=== PATIENT | female | born 1995 | race Caucasian/White ===

== ENCOUNTER 2017-06-29 17:47 | Emergency (ER) | payer OTHER ==
[~2017-06-29] VITALS: Ht 160 cm; Wt 93.4 kg
[~2017-06-29 17:47] MED LIST: ONDA4TAB10 PO; PHEN100T82 PO; SULF1TAB24 PO
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
[2017-06-29 19:01] VITALS: BP 130/68
[2017-06-30] MEDS ORDERED: ONDA4TAB10 SL (13:34)
== END 2017-06-29 19:00 | disposition home or self-care (01) ==
LOC: ER 17:47
DX: S06.0X0A Concussion without loss of consciousness, initial encounter (principal); S20.212A Contusion of left front wall of thorax, initial encounter; S20.211A Contusion of right front wall of thorax, initial encounter; Z87.820 Personal history of traumatic brain injury; Y04.0XXA Assault by unarmed brawl or fight, initial encounter; Y93.89 Activity, other specified; Y99.8 Other external cause status; Y92.89 Other specified places as the place of occurrence of the external cause
CPT/HCPCS: 99281; 99283

== ENCOUNTER 2017-06-30 12:55 | Emergency (ER) | payer OTHER ==
[~2017-06-30] VITALS: Ht 160 cm; Wt 93.4 kg
[2017-06-30] MEDS ORDERED: ONDA4TAB10 SL (13:34)
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
[2017-06-30 13:40] VITALS: BP 129/89
== END 2017-06-30 13:41 | disposition home or self-care (01) ==
LOC: ER 12:55
DX: S09.8XXA Other specified injuries of head, initial encounter (principal); W22.8XXA Striking against or struck by other objects, initial encounter; Y93.89 Activity, other specified; Y99.8 Other external cause status; Y92.89 Other specified places as the place of occurrence of the external cause
CPT/HCPCS: 99283

== ENCOUNTER 2017-09-17 17:33 | Emergency (ER) | payer OTHER ==
[~2017-09-17] VITALS: Ht 160 cm; Wt 88.5 kg
[~2017-09-17 17:33] MED LIST changes: +ONDA4TAB10 SL
[2017-09-17] MEDS ORDERED: CIPR250T30 PO (18:01)
[2017-09-17] MEDS ORDERED: PHEN100T82 PO (18:01)
[2017-09-17] MEDS ORDERED: NAPR-683 PO (18:01)
--- NOTE | 2017-09-17 18:01 | PHYS DOC ---
Past History Past Medical History: No Pertinent History Past Surgical History: No Surgical History Smoking: Non-smoker Alcohol Use: Occasionally Drug Use: None Adult General Chief Complaint Chief Complaint: PAIN ON URINATION [facility] 22-year-old female patient complaining of lower abdominal pain that getting worse with urination for the last 1 week with nausea and couple episodes of vomiting without fever and chills. Patient states she had the same problem with previous episodes of UTI. Patient denies urinary discharge, , Review of Systems Review of Systems Constitutional: Denies fever or chills [] Eyes: Denies change in visual acuity, redness, or eye pain [] HENT: Denies nasal congestion or sore throat [] Respiratory: Denies cough or shortness of breath [] Cardiovascular: No additional information not addressed in HPI [] GI: Denies abdominal pain, nausea, vomiting, bloody stools or diarrhea [] : Reports dysuria[] Musculoskeletal: Denies back pain or joint pain [] Integument: Denies rash or skin lesions [] Neurologic: Denies headache, focal weakness or sensory changes [] Endocrine: Denies polyuria or polydipsia [] All other systems were reviewed and found to be within normal limits, except as documented in this note. Allergies Allergies Allergies Coded Allergies Type Severity Reaction Last Updated Verified No Known Drug Allergies 09/14/16 No Physical Exam Physical Exam Constitutional: Well developed, well nourished, no acute distress, non-toxic appearance. [] HENT: Normocephalic, atraumatic, bilateral external ears normal, oropharynx moist, no oral exudates, nose normal. [] Eyes: PERRLA, EOMI, conjunctiva normal, no discharge. [] Neck: Normal range of motion, no tenderness, supple, no stridor. [] Cardiovascular:Heart rate regular rhythm, no murmur [] Lungs & Thorax: Bilateral breath sounds clear to auscultation [] Abdomen: Bowel sounds normal, soft, no tenderness, no masses, no pulsatile masses. [] Skin: Warm, dry, no erythema, no rash. [] Back: No tenderness, no CVA tenderness. [] Extremities: No tenderness, no cyanosis, no clubbing, ROM intact, no edema. [] Neurologic: Alert and oriented X 3, normal motor function, normal sensory function, no focal deficits noted. [] Psychologic: Affect normal, judgement normal, mood normal. [] Current Patient Data Lab Results Laboratory Tests Test 09/17/17 17:50 POC Urine HCG, Qualitative hcg negative (Negative) EKG EKG [] Radiology/Procedures Radiology/Procedures [] Course & Med Decision Making Course & Med Decision Making Pertinent Labs reviewed. (See chart for details) discharge: I've spoken with the patient and/or caregivers. I've explained the patient's condition, diagnosis and treatment plan based on information available to me at this time. I've answered the patient's and/or caregivers questions and addressed any concerns. The patient and/or caregivers have a good understanding the patient's diagnosis, condition and treatment plan as can be expected at this point. Vital signs have been stabilized. The patient's condition is stable for discharge from the emergency department. The patient will pursue further outpatient evaluation with her primary care provider or other designated consulting physician as outlined in the discharge instructions. Patient and/or caregivers are agreeable to this plan of care and follow-up instructions have been explained in detail. The patient and/or caregivers have received these instructions in written format and expressed understanding of these discharge instructions. The patient and her caregivers are aware that if any significant change in condition or worsening of symptoms should prompt him to immediately return to this of the closest emergency department. If an emergent department is not readily available I would encourage him to call 911. [] Dragon Disclaimer Dragon Disclaimer This electronic medical record was generated, in whole or in part, using a voice recognition dictation system. Departure Departure: Impression: Primary Impression: UTI (urinary tract infection) Disposition: HOME, SELF-CARE (at 1800) Condition: STABLE Referrals: ANALIA CARRILLO MD (PCP) Patient Instructions: Urinary Tract Infection Additional Instructions: Drink plenty of liquids Follow-up with your primary care physician in 3-5 days Return to ER if not getting better Scripts Phenazopyridine Hcl (PYRIDIUM) 100 Mg Tablet 100 MG PO BID, #14 TAB Prov: TANVIR SHARMA MD 09/17/17 Naproxen (NAPROSYN) 500 Mg Tablet 1 TAB PO BID, #14 TAB 2 Refills Prov: TANVIR SHARMA MD 09/17/17 Ciprofloxacin Hcl (CIPRO) 250 Mg Tablet 1 TAB PO BID, #14 TAB Prov: TANVIR SHARMA MD 09/17/17 TANVIR SHARMA MD Sep 17, 2017 18:01
[2017-09-17 18:05] VITALS: BP 119/65
[2017-09-17 18:56] LABS: BILIRUBIN,URINE NEG (NEG); CLARITY,URINE CLEAR; COLOR,URINE YELLOW; GLUCOSE,URINE NEG (NEG); NITRITE,URINE NEG (NEG); UROBILINOGEN,URINE 0.2 mg/dL (0.2 mg/dL)
[2017-09-17 18:57] LABS: BACTERIA,URINE MOD /HPF (0-FEW); SQUAMOUS EPITHELIAL CELL,UR OCC /LPF
== END 2017-09-17 18:09 | disposition home or self-care (01) ==
LOC: ER 17:33
DX: N39.0 Urinary tract infection, site not specified (principal)
CPT/HCPCS: 81001; 81025; 87086; 99284

== ENCOUNTER 2018-05-29 23:07 | Emergency (ER) | payer SELFPAY ==
[~2018-05-29] VITALS: Ht 157.5 cm; Wt 77.0 kg
[~2018-05-29 23:07] MED LIST changes: +CIPR250T30 PO; +NAPR-683 PO
[2018-05-30 00:24] LABS: BILIRUBIN,URINE NEG (NEG); CLARITY,URINE CLEAR; COLOR,URINE YELLOW; GLUCOSE,URINE NEG (NEG)
[2018-05-30 00:25] LABS: BACTERIA,URINE 0 /HPF (0-FEW); NITRITE,URINE NEG (NEG); RBC,URINE 0 /HPF (0-2); SQUAMOUS EPITHELIAL CELL,UR FEW /LPF; UROBILINOGEN,URINE 0.2 mg/dL (0.2 mg/dL); WBC,URINE RARE /HPF (0-4)
[2018-05-30] MEDS: IV NORMAL SALINE 1,000ML 1,000 ML IV ONE (00:38)
[2018-05-30] MEDS: ONDANSETRON PF 4 MG/2 ML VIAL. IV ONE (00:38)
[2018-05-30 01:05] LABS: BASO % 0 % (0-3); EOS # 0.1 x10^3/uL (0.0-0.7); EOS % 1 % (0-3); HEMATOCRIT 41.2 % (36.0-47.0); HEMOGLOBIN 14.1 g/dL (12.0-15.5); LYMPH % 27 % (24-48); MEAN CORPUSCULAR HEMOGLOBIN 31 pg (25-35); MEAN CORPUSCULAR HGB CONC 34 g/dL (31-37); MEAN CORPUSCULAR VOLUME 90 fL (79-100); MONO # 0.5 x10^3/uL (0.0-1.1); MONO % 5 % (0-9); NEUT # 7.5 x10^3uL (1.8-7.7); NEUT % 67 % (31-73); PLATELET COUNT 260 x10^3/uL (140-400); RED BLOOD COUNT 4.59 x10^6/uL (3.50-5.40); RED CELL DISTRIBUTION WIDTH 13.1 % (11.5-14.5); WHITE BLOOD COUNT 11.2 x10^3/uL (4.0-11.0)
--- NOTE | 2018-05-30 01:06 | PHYS DOC ---
Adult General Chief Complaint Chief Complaint Nausea and vomiting [facility] HPI Laboratory pleasant 23 years old female presented to the emergency department with nausea and vomiting started on Wednesday 2 days ago no abdominal pain no fever no chills no urgency no frequency no hematuria states she minimally vomits after she eats she noticed she vomits and she feels burning sensation in her epigastric area after spicy foods Review of Systems Review of Systems Constitutional: Denies fever or chills [] Eyes: Denies change in visual acuity, redness, or eye pain [] HENT: Denies nasal congestion or sore throat [] Respiratory: Denies cough or shortness of breath [] Cardiovascular: No additional information not addressed in HPI [] GI: Denies abdominal pain, nausea, vomiting, bloody stools or diarrhea [] : Denies dysuria or hematuria [] Musculoskeletal: Denies back pain or joint pain [] Integument: Denies rash or skin lesions [] Neurologic: Denies headache, focal weakness or sensory changes [] Endocrine: Denies polyuria or polydipsia [] All other systems were reviewed and found to be within normal limits, except as documented in this note. Current Medications Current Medications Current Medications Medications (Trade) Dose Ordered Sig/Devang Start Time Stop Time Status Last Admin Dose Admin Ondansetron HCl (Zofran) 4 mg 1X ONCE 05/30/18 00:30 05/30/18 00:31 DC 05/30/18 00:38 4 MG Sodium Chloride 1,000 ml @ 1,000 mls/hr 1X ONCE 05/30/18 00:30 05/30/18 01:29 05/30/18 00:38 1,000 MLS/HR Allergies Allergies Allergies Coded Allergies Type Severity Reaction Last Updated Verified No Known Drug Allergies 09/14/16 No Physical Exam Physical Exam Constitutional: Well developed, well nourished, no acute distress, non-toxic appearance. [] HENT: Normocephalic, atraumatic, bilateral external ears normal, oropharynx moist, no oral exudates, nose normal. [] Eyes: PERRLA, EOMI, conjunctiva normal, no discharge. [] Neck: Normal range of motion, no tenderness, supple, no stridor. [] Cardiovascular:Heart rate regular rhythm, no murmur [] Lungs & Thorax: Bilateral breath sounds clear to auscultation [] Abdomen: Bowel sounds normal, soft, no tenderness, no masses, no pulsatile masses. [] Skin: Warm, dry, no erythema, no rash. [] Back: No tenderness, no CVA tenderness. [] Extremities: No tenderness, no cyanosis, no clubbing, ROM intact, no edema. [] Neurologic: Alert and oriented X 3, normal motor function, normal sensory function, no focal deficits noted. [] Psychologic: Affect normal, judgement normal, mood normal. [] Current Patient Data Vital Signs Vital Signs Date Time Temp Pulse Resp B/P (MAP) Pulse Ox O2 Delivery O2 Flow Rate FiO2 05/29/18 23:20 98.7 73 18 73 Room Air Lab Results Laboratory Tests Test 05/29/18 23:20 Urine Collection Type Unknown Urine Color Yellow Urine Clarity Clear Urine pH 6.0 Urine Specific [place] 1.025 Urine Protein Neg (NEG-TRACE) Urine Glucose (UA) Neg mg/dL (NEG) Urine Ketones (Stick) Neg mg/dL (NEG) Urine Blood Trace (NEG) Urine Nitrite Neg (NEG) Urine Bilirubin Neg (NEG) Urine Urobilinogen Dipstick 0.2 mg/dL (0.2 mg/dL) Urine Leukocyte Esterase Neg (NEG) Urine RBC 0 /HPF (0-2) Urine WBC Rare /HPF (0-4) Urine Squamous Epithelial Cells Few /LPF Urine Bacteria 0 /HPF (0-FEW) EKG EKG [] Radiology/Procedures Radiology/Procedures [] Course & Med Decision Making Course & Med Decision Making Pertinent Labs and Imaging studies reviewed. (See chart for details) [] Final Impression Final Impression [] Problems: (1) Vomiting Qualifiers: Dragon Disclaimer Dragon Disclaimer This electronic medical record was generated, in whole or in part, using a voice recognition dictation system. ELVI COWART MD May 30, 2018 01:06
[2018-05-30 01:19] LABS: ALBUMIN 3.9 g/dL (3.4-5.0); ALBUMIN/GLOBULIN RATIO 1.2 (1.0-1.7); CALCIUM 8.9 mg/dL (8.5-10.1); CREATININE 0.8 mg/dL (0.6-1.0); GFR 90.5; POTASSIUM 3.8 mmol/L (3.5-5.1); TOTAL BILIRUBIN 0.4 mg/dL (0.2-1.0); TOTAL PROTEIN 7.1 g/dL (6.4-8.2)
[2018-05-30] MEDS ORDERED: ONDA8TAB9 PO (01:27)
[2018-05-30] MEDS ORDERED: PANT40TA3 PO (01:27)
[2018-05-30 01:35] VITALS: BP 118/72
== END 2018-05-30 01:40 | disposition home or self-care (01) ==
LOC: ER 23:07
DX: R11.2 Nausea with vomiting, unspecified (principal); R10.13 Epigastric pain
CPT/HCPCS: 36415; 80053; 81001; 81025; 85025; 96361; 96374; 99284; J2405; J7030

== ENCOUNTER 2018-06-01 13:04 | Emergency (ER) | payer SELFPAY ==
[~2018-06-01] VITALS: Ht 157.5 cm; Wt 68.9 kg
[~2018-06-01 13:04] MED LIST changes: +ONDA8TAB9 PO; +PANT40TA3 PO
[2018-06-01] MEDS ORDERED: PROCHLORPERAZINE 10 MG/2 ML VIAL. IV ONE (13:30)
[2018-06-01] MEDS ORDERED: IV NORMAL SALINE 1,000ML 1,000 ML IV ONE (13:30)
--- NOTE | 2018-06-01 13:30 | PHYS DOC ---
Past History Past Medical History: No Pertinent History Past Surgical History: No Surgical History Smoking: Non-smoker Alcohol Use: None Drug Use: None Adult General Chief Complaint Chief Complaint: ABDOMINAL PAIN HPI HPI 23-year-old female presents with several day history of abdominal pain and vomiting. The patient was seen in the emergency room a few days ago and was prescribed pantoprazole and Zofran. For the first day, the Zofran helped and the patient was able to drink Gatorade. She has been vomiting through the 8 mg of Zofran yesterday and today. Today she also has central abdominal cramping and pain. She has no known sick contacts. She has not been camping. She has not had any unusual food exposures. He is never had abdominal surgery. She has had fever up to 101F at home. She denies dysuria or urinary frequency. Review of Systems Review of Systems Constitutional: Denies fever or chills [] Eyes: Denies change in visual acuity, redness, or eye pain [] HENT: Denies nasal congestion or sore throat [] Respiratory: Denies cough or shortness of breath [] Cardiovascular: No additional information not addressed in HPI [] GI: Central abdominal pain, nausea, vomiting.[] : Denies dysuria or hematuria [] Musculoskeletal: Denies back pain or joint pain [] Integument: Denies rash or skin lesions [] Neurologic: Denies headache, focal weakness or sensory changes [] Endocrine: Denies polyuria or polydipsia [] All other systems were reviewed and found to be within normal limits, except as documented in this note. Allergies Allergies Allergies Coded Allergies Type Severity Reaction Last Updated Verified No Known Drug Allergies 09/14/16 No Physical Exam Physical Exam Constitutional: Well developed, well nourished, no acute distress, non-toxic appearance. [] HENT: Normocephalic, atraumatic, bilateral external ears normal, oropharynx moist, no oral exudates, nose normal. [] Eyes: PERRLA, EOMI, conjunctiva normal, no discharge. [] Neck: Normal range of motion, no tenderness, supple, no stridor. [] Cardiovascular:Heart rate regular rhythm, no murmur [] Lungs & Thorax: Bilateral breath sounds clear to auscultation [] Abdomen: Bowel sounds normal, soft, mild suprapubic tenderness., no masses, no pulsatile masses. [] Skin: Warm, dry, no erythema, no rash. [] Back: No tenderness, no CVA tenderness. [] Extremities: No tenderness, no cyanosis, no clubbing, ROM intact, no edema. [] Neurologic: Alert and oriented X 3, normal motor function, normal sensory function, no focal deficits noted. [] Psychologic: Affect normal, judgement normal, mood normal. [] Current Patient Data Vital Signs Vital Signs Date Time Temp Pulse Resp B/P (MAP) Pulse Ox O2 Delivery O2 Flow Rate FiO2 06/01/18 13:05 98.1 73 16 100 Room Air EKG EKG [] Radiology/Procedures Radiology/Procedures [] Impressions: Examination: CT of the abdomen pelvis with IV contrast HISTORY: History of vomiting, abdominal pain COMPARISON: 09/14/2016 TECHNIQUE: Axial CT images of the abdomen pelvis were performed with IV contrast. Coronal and sagittal reformats are performed. Exposure: One or more of the following individualized dose reduction techniques were utilized for this examination: 1. Automated exposure control 2. Adjustment of the mA and/or kV according to patient size 3. Use of iterative reconstruction technique FINDINGS: Minimal bibasilar lung atelectasis. No evidence of free air identified in the abdomen. The visualized liver, spleen, adrenals grossly appears unremarkable the gallbladder is mildly distended. The stomach is mildly distended. The visualized pancreas grossly appears unremarkable. Small bowel is nondilated. Feces and gas noted in the colon. The appendix is normal. Urinary bladder is mildly distended. The bilateral kidneys enhance symmetrically. Urinary bladder is mildly distended. No significant free fluid identified in the pelvis. No evidence of lytic bony destructive lesion. IMPRESSION: No acute intra-abdominal findings. Electronically signed by: Monico Kendrick MD (06/01/2018 2:39 PM) [facility] LICENSE OF [facility] DICTATED AND SIGNED BY: MONICO KENDRICK MD DATE: 06/01/18 [id number] CC: JAMIE ENGLAND DO; ANALIA CARRILLO MD Course & Med Decision Making Course & Med Decision Making Pertinent Labs and Imaging studies reviewed. (See chart for details) Patient's CT is unremarkable. Her labs are unremarkable. She is not . Urine is pending. Urine is negative for infection. The patient likely has a viral illness. I have recommended supportive care. She is stable for discharge at this time. If her condition worsens she will return to the emergency room. [] Dragon Disclaimer Dragon Disclaimer This electronic medical record was generated, in whole or in part, using a voice recognition dictation system. Departure Departure: Referrals: ANALIA CARRILLO MD (PCP) Scripts Prochlorperazine Maleate (Compazine) 10 Mg Tablet 10 MG PO Q6HRS PRN for NAUSEA/VOMITING, #20 TAB Prov: JAMIE ENGLAND DO 06/01/18 Ondansetron (ZOFRAN ODT) 8 Mg Tab.rapdis 8 MG PO Q8HRS PRN for NAUSEA/VOMITING, #10 TAB Prov: JAMIE ENGLAND DO 06/01/18 JAMIE ENGLAND DO Jun 01, 2018 13:30
[2018-06-01] MEDS ORDERED: IOHEXOL 300 MG/ML 75 ML VIAL. IV ONE (13:45)
[2018-06-01 13:51] LABS: BASO % 0 % (0-3); EOS # 0.1 x10^3/uL (0.0-0.7); EOS % 1 % (0-3); HEMOGLOBIN 14.5 g/dL (12.0-15.5); LYMPH # 2.3 x10^3/uL (1.0-4.8); LYMPH % 30 % (24-48); MEAN CORPUSCULAR HEMOGLOBIN 31 pg (25-35); MEAN CORPUSCULAR HGB CONC 34 g/dL (31-37); MEAN CORPUSCULAR VOLUME 90 fL (79-100); MONO # 0.4 x10^3/uL (0.0-1.1); MONO % 5 % (0-9); NEUT % 64 % (31-73); PLATELET COUNT 254 x10^3/uL (140-400); RED BLOOD COUNT 4.76 x10^6/uL (3.50-5.40); RED CELL DISTRIBUTION WIDTH 12.5 % (11.5-14.5); WHITE BLOOD COUNT 7.9 x10^3/uL (4.0-11.0)
[2018-06-01 14:02] LABS: ALBUMIN 4.1 g/dL (3.4-5.0); ALBUMIN/GLOBULIN RATIO 1.2 (1.0-1.7); CALCIUM 8.9 mg/dL (8.5-10.1); POTASSIUM 4.3 mmol/L (3.5-5.1); TOTAL BILIRUBIN 0.4 mg/dL (0.2-1.0); TOTAL PROTEIN 7.6 g/dL (6.4-8.2)
--- NOTE | 2018-06-01 14:42 | RAD ---
Examination: CT of the abdomen pelvis with IV contrast HISTORY: History of vomiting, abdominal pain COMPARISON: 09/14/2016 TECHNIQUE: Axial CT images of the abdomen pelvis were performed with IV contrast. Coronal and sagittal reformats are performed. Exposure: One or more of the following individualized dose reduction techniques were utilized for this examination: 1. Automated exposure control 2. Adjustment of the mA and/or kV according to patient size 3. Use of iterative reconstruction technique FINDINGS: Minimal bibasilar lung atelectasis. No evidence of free air identified in the abdomen. The visualized liver, spleen, adrenals grossly appears unremarkable the gallbladder is mildly distended. The stomach is mildly distended. The visualized pancreas grossly appears unremarkable. Small bowel is nondilated. Feces and gas noted in the colon. The appendix is normal. Urinary bladder is mildly distended. The bilateral kidneys enhance symmetrically. Urinary bladder is mildly distended. No significant free fluid identified in the pelvis. No evidence of lytic bony destructive lesion. IMPRESSION: No acute intra-abdominal findings. Electronically signed by: Monico Kendrick MD (06/01/2018 2:39 PM) [place] [id number]
[2018-06-01 15:07] LABS: BACTERIA,URINE 0 /HPF (0-FEW); BILIRUBIN,URINE NEG (NEG); CLARITY,URINE CLEAR; COLOR,URINE YELLOW; GLUCOSE,URINE NEG (NEG); NITRITE,URINE NEG (NEG); RBC,URINE 0 /HPF (0-2); SQUAMOUS EPITHELIAL CELL,UR FEW /LPF; UROBILINOGEN,URINE 0.2 mg/dL (0.2 mg/dL); WBC,URINE RARE /HPF (0-4)
[2018-06-01] MEDS ORDERED: PROC10TA57 PO (15:34)
[2018-06-01] MEDS ORDERED: ONDA8TAB12 PO (15:34)
[2018-06-01 15:38] VITALS: BP 116/65
== END 2018-06-01 15:40 | disposition home or self-care (01) ==
LOC: ER 13:04
DX: R10.30 Lower abdominal pain, unspecified (principal); R11.2 Nausea with vomiting, unspecified
CPT/HCPCS: 36415; 74177; 80053; 81001; 81025; 83690; 85025; 96361; 96374; 99285; J0780; Q9967; J7030

== ENCOUNTER 2019-09-28 08:57 | Emergency (ER) | payer OTHER ==
[~2019-09-28] VITALS: Ht 157.5 cm; Wt 77.4 kg
[~2019-09-28 08:57] MED LIST changes: +ONDA8TAB12 PO; +PROC10TA57 PO
[2019-09-28] MEDS ORDERED: IV NORMAL SALINE 1,000ML 1,000 ML IV SCH (09:50)
--- NOTE | 2019-09-28 09:54 | PHYS DOC ---
Past History Past Medical History: No Pertinent History Past Surgical History: No Surgical History Smoking: Non-smoker Alcohol Use: Occasionally Drug Use: None Adult General Chief Complaint Chief Complaint: BACK PAIN OR INJURY HPI HPI Patient is a 24-year-old female who presents to ER today for evaluation of nausea, bilateral flank pain, urinary frequency for 2 weeks. Patient was seen in urgent care couple days ago, diagnosed with UTI, was put on Bactrim DS, she did not get any better, she continued to feel nauseous and have bilateral flank pain with frequent urination. Patient denied any blood in her stool, no blood in her urine, no fever. Review of Systems Review of Systems Constitutional: Denies fever or chills [] Eyes: Denies change in visual acuity, redness, or eye pain [] HENT: Denies nasal congestion or sore throat [] Respiratory: Denies cough or shortness of breath [] Cardiovascular: No additional information not addressed in HPI [] GI: Positive for flank pain, nausea, vomiting, NO bloody stools or diarrhea [] : Denies dysuria or hematuria. Positive for urinary frequency. Musculoskeletal: Denies back pain or joint pain [] Integument: Denies rash or skin lesions [] Neurologic: Denies headache, focal weakness or sensory changes [] Endocrine: Denies polyuria or polydipsia [] All other systems were reviewed and found to be within normal limits, except as documented in this note. Allergies Allergies Allergies Coded Allergies Type Severity Reaction Last Updated Verified No Known Drug Allergies 09/28/19 No Physical Exam Physical Exam Constitutional: Well developed, well nourished, no acute distress, non-toxic appearance. [] HENT: Normocephalic, atraumatic, bilateral external ears normal, oropharynx moist, no oral exudates, nose normal. [] Eyes: PERRLA, EOMI, conjunctiva normal, no discharge. [] Neck: Normal range of motion, no tenderness, supple, no stridor. [] Cardiovascular:Heart rate regular rhythm, no murmur [] Lungs & Thorax: Bilateral breath sounds clear to auscultation [] Abdomen: Bowel sounds normal, soft, Bilateral CVA tenderness, no masses, no pulsatile masses. [] Skin: Warm, dry, no erythema, no rash. [] Back: No tenderness, bilateral CVA tenderness. [] Extremities: No tenderness, no cyanosis, no clubbing, ROM intact, no edema. [] Neurologic: Alert and oriented X 3, normal motor function, normal sensory function, no focal deficits noted. [] Psychologic: Affect normal, judgement normal, mood normal. [] Current Patient Data Vital Signs Vital Signs Date Time Temp Pulse Resp B/P (MAP) Pulse Ox O2 Delivery O2 Flow Rate FiO2 09/28/19 09:11 98.5 18 138/89 (105) 98 Room Air Lab Results Laboratory Tests Test 09/28/19 10:10 09/28/19 10:13 Urine Collection Type Void Urine Color Yellow Urine Clarity Hazy Urine pH 8.5 Urine Specific [place] 1.015 Urine Protein Neg Urine Glucose (UA) Neg mg/dL Urine Ketones (Stick) Trace mg/dL Urine Blood Trace Urine Nitrite Pos Urine Bilirubin Neg Urine Urobilinogen Dipstick 0.2 mg/dL Urine Leukocyte Esterase Neg Urine RBC 3-5 /HPF Urine WBC 1-4 /HPF Urine Squamous Epithelial Cells Few /LPF Urine Amorphous Sediment Present /HPF Urine Bacteria Few /HPF Urine Mucus Slight /LPF White Blood Count 15.3 x10^3/uL Red Blood Count 4.88 x10^6/uL Hemoglobin 14.8 g/dL Hematocrit 44.5 % Mean Corpuscular Volume 91 fL Mean Corpuscular Hemoglobin 30 pg Mean Corpuscular Hemoglobin Concent 33 g/dL Red Cell Distribution Width 12.7 % Platelet Count 284 x10^3/uL Neutrophils (%) (Auto) 86 % Lymphocytes (%) (Auto) 8 % Monocytes (%) (Auto) 5 % Eosinophils (%) (Auto) 0 % Basophils (%) (Auto) 1 % Neutrophils # (Auto) 13.2 x10^3uL Lymphocytes # (Auto) 1.2 x10^3/uL Monocytes # (Auto) 0.8 x10^3/uL Eosinophils # (Auto) 0.0 x10^3/uL Basophils # (Auto) 0.1 x10^3/uL Segmented Neutrophils % 84 % Band Neutrophils % 1 % Lymphocytes % 7 % Monocytes % 8 % Platelet Estimate Adequate Sodium Level 144 mmol/L Potassium Level 3.9 mmol/L Chloride Level 108 mmol/L Carbon Dioxide Level 23 mmol/L Anion Gap 13 Blood Urea Nitrogen 14 mg/dL Creatinine 1.0 mg/dL Estimated GFR (Cockcroft-Gault) 69.3 BUN/Creatinine Ratio 14 Glucose Level 119 mg/dL Calcium Level 9.3 mg/dL Total Bilirubin 0.5 mg/dL Aspartate Amino Transf (AST/SGOT) 18 U/L Alanine Aminotransferase (ALT/SGPT) 19 U/L Alkaline Phosphatase 52 U/L Total Protein 7.9 g/dL Albumin 4.3 g/dL Albumin/Globulin Ratio 1.2 Lipase 92 U/L Serum Test, Qualitative Negative Current Medications Medications (Trade) Dose Ordered Sig/Devang Route PRN Reason Start Time Stop Time Status Last Admin Dose Admin Sodium Chloride 1,000 ml @ 1,000 mls/hr Q1H IV 09/28/19 09:50 09/28/19 10:49 DC 09/28/19 10:17 Ondansetron HCl (Zofran) 4 mg 1X ONCE IVP 09/28/19 10:00 09/28/19 10:01 DC 09/28/19 10:18 Ceftriaxone Sodium 1 gm/ Sodium Chloride 50 ml @ 100 mls/hr 1X ONCE IV 09/28/19 11:15 09/28/19 11:44 DC 09/28/19 11:36 Sodium Chloride 50 ml @ As Directed STK-MED ONCE .ROUTE 09/28/19 11:05 09/28/19 11:05 DC Ceftriaxone Sodium (Rocephin) 1 gm STK-MED ONCE .ROUTE 09/28/19 11:05 09/28/19 11:05 DC Iohexol (Omnipaque 300 Mg/ml) 75 ml 1X ONCE IV 09/28/19 11:15 09/28/19 11:16 DC 09/28/19 11:14 EKG EKG [] Radiology/Procedures Radiology/Procedures [][address] [address] IMAGING REPORT Signed PATIENT: KENIA CARTER ACCOUNT: [id number] : 1995 LOCATION: ER AGE: 24 SEX: F EXAM STATUS: REG ER ORD. PHYSICIAN: SIMON HORTON DO REASON: back pain ,nv since yesterday, high wbc omni 300 75cc PROCEDURE: CT ABD PELV W/ IV CONTRST ONLY CT ABD PELV W/ IV CONTRST ONLY Indication: Back pain, nausea and vomiting. Exposure: One or more of the following individualized dose reduction techniques were utilized for this examination: 1. Automated exposure control 2. Adjustment of the mA and/or kV according to patient size 3. Use of iterative reconstruction technique. Technique: Intravenous contrast was given. No oral contrast per request. Comparison: 06/01/2018. 09/14/2016. FINDINGS: There is some asymmetric density in the right breast. This could be due to positioning, but note that this appears similar as well was seen on a prior study of 09/14/2016. Lung bases appear grossly clear. Liver appears unremarkable. Spleen unremarkable. Pancreas unremarkable. No evidence of adrenal mass. Kidneys demonstrate symmetric enhancement without hydronephrosis or focal mass. No calcified gallstone. Aorta is nonaneurysmal. No significant pathologic lymph node enlargement. Small hiatal hernia. Stomach appears unremarkable. No significant small bowel distention. Moderate stool throughout the colon and rectum. No evidence of findings to suggest acute colitis. The appendix appears normal. No evidence of ascites. No evidence of pneumoperitoneum. Urinary bladder appears unremarkable. No evidence of pelvic mass. Vertebral body height and alignment are intact. No evidence of aggressive bone destruction. No evidence of acute fracture. IMPRESSION: No acute findings in the abdomen or pelvis. Electronically signed by: Walt Montoya MD (09/28/2019 11:43 AM) [id number] DICTATED AND SIGNED BY: WALT MONTOYA MD DATE: 09/28/19 1143 CC: PCP,MOSES; SIMON HORTON DO ~ Course & Med Decision Making Course & Med Decision Making Pertinent Labs and Imaging studies reviewed. (See chart for details) Patient still has urinary tract infection, outpatient Bactrim detected.well, will switch to Levaquin. Dragon Disclaimer Dragon Disclaimer This electronic medical record was generated, in whole or in part, using a voice recognition dictation system. Departure Departure: Impression: Primary Impression: UTI (urinary tract infection) Disposition: HOME, SELF-CARE Condition: STABLE Referrals: MOSES SCHMITZ (PCP) follow up with your doctor as needed on wednesday Patient Instructions: Urinary Tract Infection Additional Instructions: Thank you for visiting our Emergency Department. We appreciate you trusting us with your care. If any additional problems come up don't hesitate to return to visit us. Please follow up with your primary care provider so they can plan additional care if needed and know about the problem that you had. If symptoms worsen come back to the Emergency Department. Any concerning symptoms that start such as chest pain, shortness of air, weakness or numbness on one side of the body, running high fevers or any other concerning symptoms return to the ER. Scripts Ondansetron Hcl (ZOFRAN) 4 Mg Tablet 1 TAB PO Q6HRS PRN for NAUSEA, #12 TAB Prov: SIMON HORTON DO 09/28/19 Levofloxacin (LEVAQUIN) 500 Mg Tablet 1 TAB PO DAILY for UTI for 7 Days, #7 TAB 0 Refills Prov: SIMON HORTON DO 09/28/19 SIMON HORTON DO Sep 28, 2019 09:54
[2019-09-28] MEDS ORDERED: ONDANSETRON PF 4 MG/2 ML VIAL. IVP ONE (10:00)
[2019-09-28 10:26] LABS: BASO # 0.1 x10^3/uL (0.0-0.2); BASO % 1 % (0-3); EOS % 0 % (0-3); HEMATOCRIT 44.5 % (36.0-47.0); HEMOGLOBIN 14.8 g/dL (12.0-15.5); LYMPH # 1.2 x10^3/uL (1.0-4.8); LYMPH % 8 % (24-48); MEAN CORPUSCULAR HEMOGLOBIN 30 pg (25-35); MEAN CORPUSCULAR HGB CONC 33 g/dL (31-37); MEAN CORPUSCULAR VOLUME 91 fL (79-100); MONO # 0.8 x10^3/uL (0.0-1.1); MONO % 5 % (0-9); NEUT # 13.2 x10^3uL (1.8-7.7); NEUT % 86 % (31-73); PLATELET COUNT 284 x10^3/uL (140-400); RED BLOOD COUNT 4.88 x10^6/uL (3.50-5.40); RED CELL DISTRIBUTION WIDTH 12.7 % (11.5-14.5); WHITE BLOOD COUNT 15.3 x10^3/uL (4.0-11.0)
[2019-09-28 10:33] LABS: CALCIUM 9.3 mg/dL (8.5-10.1); GFR 69.3; POTASSIUM 3.9 mmol/L (3.5-5.1)
[2019-09-28 10:39] LABS: ALBUMIN 4.3 g/dL (3.4-5.0); ALBUMIN/GLOBULIN RATIO 1.2 (1.0-1.7); TOTAL BILIRUBIN 0.5 mg/dL (0.2-1.0); TOTAL PROTEIN 7.9 g/dL (6.4-8.2)
[2019-09-28 10:42] LABS: BILIRUBIN,URINE NEG (NEG); CLARITY,URINE HAZY; COLOR,URINE YELLOW; GLUCOSE,URINE NEG (NEG); UROBILINOGEN,URINE 0.2 mg/dL (0.2 mg/dL)
[2019-09-28 10:44] LABS: BACTERIA,URINE FEW /HPF (0-FEW); NITRITE,URINE POS (NEG); SQUAMOUS EPITHELIAL CELL,UR FEW /LPF
[2019-09-28 10:45] LABS: AMORPHOUS SEDIMENT,UR PRESENT /HPF
[2019-09-28 10:45] LABS: PREG TEST PT QUAL NEGATIVE (NEG)
[2019-09-28 10:56] LABS: % BANDS 1 % (0-9); % LYMPHS 7 % (24-48); % MONOS 8 % (0-10); % SEGS 84 % (35-66)
[2019-09-28 10:57] LABS: PLT ESTIMATE ADEQUATE (ADEQUATE)
[2019-09-28] MEDS ORDERED: cefTRIAXone SODIUM 1 GM VIAL ONE (11:05)
[2019-09-28] MEDS ORDERED: IV NORMAL SALINE 50ML 50 ML ONE (11:05)
[2019-09-28] MEDS ORDERED: IOHEXOL 300 MG/ML 75 ML VIAL. IV ONE (11:15)
--- NOTE | 2019-09-28 11:46 | RAD ---
CT ABD PELV W/ IV CONTRST ONLY Indication: Back pain, nausea and vomiting. Exposure: One or more of the following individualized dose reduction techniques were utilized for this examination: 1. Automated exposure control 2. Adjustment of the mA and/or kV according to patient size 3. Use of iterative reconstruction technique. Technique: Intravenous contrast was given. No oral contrast per request. Comparison: 06/01/2018. 09/14/2016. FINDINGS: There is some asymmetric density in the right breast. This could be due to positioning, but note that this appears similar as well was seen on a prior study of 09/14/2016. Lung bases appear grossly clear. Liver appears unremarkable. Spleen unremarkable. Pancreas unremarkable. No evidence of adrenal mass. Kidneys demonstrate symmetric enhancement without hydronephrosis or focal mass. No calcified gallstone. Aorta is nonaneurysmal. No significant pathologic lymph node enlargement. Small hiatal hernia. Stomach appears unremarkable. No significant small bowel distention. Moderate stool throughout the colon and rectum. No evidence of findings to suggest acute colitis. The appendix appears normal. No evidence of ascites. No evidence of pneumoperitoneum. Urinary bladder appears unremarkable. No evidence of pelvic mass. Vertebral body height and alignment are intact. No evidence of aggressive bone destruction. No evidence of acute fracture. IMPRESSION: No acute findings in the abdomen or pelvis. Electronically signed by: Walt Montoya MD (09/28/2019 11:43 AM) [id number]
[2019-09-28] MEDS ORDERED: ONDA4TAB7 PO (11:58)
[2019-09-28] MEDS ORDERED: LEVO500T59 PO (11:58)
[2019-09-28 12:14] VITALS: BP 133/69
[2019-09-28] MEDS ORDERED: PROM25SU33 RC (18:44)
== END 2019-09-28 12:12 | disposition home or self-care (01) ==
LOC: ER 08:57
DX: N39.0 Urinary tract infection, site not specified (principal)
CPT/HCPCS: 36415; 74177; 80053; 81001; 83690; 84703; 85007; 85025; 87086; 96361; 96365; 96375; 99285; J0696; J2405; Q9967; J7030

== ENCOUNTER 2019-09-28 18:10 | Emergency (ER) | payer OTHER ==
[~2019-09-28] VITALS: Ht 157.5 cm; Wt 73.6 kg
[~2019-09-28 18:10] MED LIST changes: +LEVO500T59 PO; +ONDA4TAB7 PO
[2019-09-28 18:21] VITALS: BP 117/69
[2019-09-28] MEDS ORDERED: PROM25SU33 RC (18:44)
--- NOTE | 2019-09-28 18:44 | PHYS DOC ---
Past History Past Medical History: No Pertinent History Past Surgical History: No Surgical History Smoking: Non-smoker Alcohol Use: Occasionally Drug Use: None Adult General Chief Complaint Chief Complaint: NAUSEA/VOMITING HPI HPI Patient is 24-year-old female who presented to ER today for evaluation of nausea and vomiting. Patient was seen here earlier today due to nausea and vomiting while taking antibiotics for her flank pain. Patient was diagnosed with UTI. Patient was sent home with Levaquin and Zofran. Patient went home and took 1 dose of Zofran and vomited right back up so she came back here for evaluation. Patient was in no acute distress in the ER, she did not vomit in the ER. Review of Systems Review of Systems Constitutional: Denies fever or chills [] Eyes: Denies change in visual acuity, redness, or eye pain [] HENT: Denies nasal congestion or sore throat [] Respiratory: Denies cough or shortness of breath [] Cardiovascular: No additional information not addressed in HPI [] GI: Denies abdominal pain, Positive for nausea, vomiting, NO bloody stools or diarrhea [] : Denies dysuria or hematuria [] Musculoskeletal: Denies back pain or joint pain [] Integument: Denies rash or skin lesions [] Neurologic: Denies headache, focal weakness or sensory changes [] Endocrine: Denies polyuria or polydipsia [] All other systems were reviewed and found to be within normal limits, except as documented in this note. Current Medications Current Medications Current Medications Medications (Trade) Dose Ordered Sig/Devang Start Time Stop Time Status Last Admin Dose Admin Metoclopramide HCl (Reglan Vial) 10 mg 1X ONCE 09/28/19 18:45 09/28/19 18:46 Ondansetron HCl (Zofran Odt) 8 mg 1X ONCE 09/28/19 18:45 09/28/19 18:46 Allergies Allergies Allergies Coded Allergies Type Severity Reaction Last Updated Verified No Known Drug Allergies 09/28/19 No Physical Exam Physical Exam Constitutional: Well developed, well nourished, no acute distress, non-toxic appearance. [] HENT: Normocephalic, atraumatic, bilateral external ears normal, oropharynx moist, no oral exudates, nose normal. [] Eyes: PERRLA, EOMI, conjunctiva normal, no discharge. [] Neck: Normal range of motion, no tenderness, supple, no stridor. [] Cardiovascular:Heart rate regular rhythm, no murmur [] Lungs & Thorax: Bilateral breath sounds clear to auscultation [] Abdomen: Bowel sounds normal, soft, no tenderness, no masses, no pulsatile masses. [] Skin: Warm, dry, no erythema, no rash. [] Back: No tenderness, no CVA tenderness. [] Extremities: No tenderness, no cyanosis, no clubbing, ROM intact, no edema. [] Neurologic: Alert and oriented X 3, normal motor function, normal sensory function, no focal deficits noted. [] Psychologic: Affect normal, judgement normal, mood normal. [] Current Patient Data Vital Signs Vital Signs Date Time Temp Pulse Resp B/P (MAP) Pulse Ox O2 Delivery O2 Flow Rate FiO2 09/28/19 18:21 98.6 68 16 117/69 (85) 98 Room Air EKG EKG [] Radiology/Procedures Radiology/Procedures [] Course & Med Decision Making Course & Med Decision Making Pertinent Labs and Imaging studies reviewed. (See chart for details) Patient is a 24-year-old female who was just evaluated here due to nausea vomiting, UTI. Patient was discharged home with Zofran and Levaquin. Patient took THESE medicationS, started vomiting again so she came back here. Patient will be given Phenergan suppositories to do at home. Dragon Disclaimer Dragon Disclaimer This electronic medical record was generated, in whole or in part, using a voice recognition dictation system. Departure Departure: Impression: Primary Impression: Nausea and vomiting Disposition: HOME, SELF-CARE Condition: STABLE Referrals: PCP,MOSES (PCP) FOLLOW UP WITH YOUR DOCTOR ON WEDNESDAY Patient Instructions: Nausea and Vomiting Scripts Promethazine Hcl (PROMETHAZINE HCL) 25 Mg Supp.rect 25 MG RC Q8HRS PRN for NAUSEA, #12 SUPP.RECT Prov: SIMON HORTON DO 09/28/19 SIMON HORTON DO Sep 28, 2019 18:44
[2019-09-28] MEDS ORDERED: ONDANSETRON ODT 4 MG TAB.RAPDIS PO ONE (18:45)
[2019-09-28] MEDS ORDERED: METOCLOPRAMIDE HCL 10 MG/2 ML VIAL. IM ONE (18:45)
== END 2019-09-28 19:27 | disposition home or self-care (01) ==
LOC: ER 18:10
DX: R11.2 Nausea with vomiting, unspecified (principal)
CPT/HCPCS: 96372; 99283; J2765; Q0162

== ENCOUNTER 2021-01-19 18:11 | Emergency (ER) | payer SELFPAY ==
[~2021-01-19] VITALS: Ht 160 cm; Wt 83.7 kg
[~2021-01-19 18:11] MED LIST changes: +PROM25SU33 RC
[2021-01-19 18:35] VITALS: BP 148/76
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
[2021-01-19] MEDS ORDERED: TETANUS AND DIPHTHERIA TOX/PF 0.5 ML VIAL. VAX IM ONE (19:45)
[2021-01-19] MEDS ORDERED: oxyCODONE/APAP 5/325 1 TAB TABLET PO ONE (19:45)
[2021-01-19] MEDS ORDERED: FLUORESCEIN 1MG EYE STRIP. OD ONE (19:45)
[2021-01-19] MEDS ORDERED: TETRACAINE 0.5% OPHTH SOLUTION 4ML BOTTLE. OD ONE (19:45)
[2021-01-19] MEDS ORDERED: ERYTHROMYCIN 0.5% OPHTH OINTMENT 1GM TUBE. OD ONE (19:45)
[2021-01-19] MEDS ORDERED: DIPH,PERTUSS(ACELL),TET VAC/PF 0.5 ML SYRINGE. VAX IM ONE (20:30)
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
== END 2021-01-19 21:05 | disposition home or self-care (01) ==
LOC: ER 18:11
DX: S00.83XA Contusion of other part of head, initial encounter (principal); S05.01XA Injury of conjunctiva and corneal abrasion without foreign body, right eye, initial encounter; H20.9 Unspecified iridocyclitis; W22.8XXA Striking against or struck by other objects, initial encounter; Y93.89 Activity, other specified; Y92.89 Other specified places as the place of occurrence of the external cause; Y99.8 Other external cause status
CPT/HCPCS: 70450; 70486; 72125; 90471; 90715; 99285

== ENCOUNTER 2021-05-12 20:04 | Emergency (ER) | payer SELFPAY ==
[~2021-05-12] VITALS: Ht 160 cm; Wt 80.5 kg
[2021-05-12] MEDS: ONDANSETRON PF 4 MG/2 ML VIAL. IVP ONE (20:39)
[2021-05-12] MEDS: IV NORMAL SALINE 1,000ML 1,000 ML IV ONE (20:40)
--- NOTE | 2021-05-12 20:42 | PHYS DOC ---
Past History Past Medical History: No Pertinent History Past Surgical History: No Surgical History Smoking: Non-smoker Alcohol Use: Rarely Drug Use: None General Adult EDM: Chief Complaint: NAUSEA/VOMITING/DIARRHEA HPI: HPI: 26-year-old female presents with nausea, vomiting, diarrhea, chest pain. She has had vomiting and diarrhea for the last 3 to 4 days. She has had some intermittent chest discomfort but it has not been that bad. This morning, she started to have a more significant chest heaviness. She describes it as a moderate level pain. It does seem to be persistent throughout the day. She has been tested for COVID-19 with a rapid and a PCR. These are both -2 days ago. She is having general fatigue. No cardiac history. Patient does admit to having heartburn for which she takes no treatment, she just waits for it to go away. Denies fever or chills. Review of Systems: Review of Systems: Constitutional: Intermittent fever, body aches, fatigue. Eyes: Denies change in visual acuity HENT: Denies nasal congestion or sore throat Respiratory: Denies cough or shortness of breath Cardiovascular: Chest pain GI: Denies abdominal pain. Nausea, vomiting, diarrhea : Denies dysuria Musculoskeletal: Denies back pain or joint pain Integument: Denies rash Neurologic: Denies headache, focal weakness or sensory changes Endocrine: Denies polyuria or polydipsia Lymphatic: Denies swollen glands Psychiatric: Denies depression or anxiety Current Medications: Current Meds: Current Medications Medications (Trade) Dose Ordered Sig/[facility] Start Time Stop Time Status Last Admin Dose Admin Ondansetron HCl (Zofran) 4 mg 1X ONCE 05/12/21 20:30 05/12/21 20:31 DC Sodium Chloride 1,000 ml @ 1,000 mls/hr 1X ONCE 05/12/21 20:30 05/12/21 21:29 Allergies: Allergies: Allergies Coded Allergies Type Severity Reaction Last Updated Verified No Known Drug Allergies 09/28/19 No Physical Exam: PE: Constitutional: Well developed, well nourished, obese, no acute distress, non- toxic appearance. [] HENT: Normocephalic, atraumatic, bilateral external ears normal, oropharynx moist, no oral exudates, nose normal. [] Eyes: PERRLA, EOMI, conjunctiva normal, no discharge. [] Neck: Normal range of motion, no tenderness, supple, no stridor. [] Cardiovascular: Heart rate 76, regular rhythm, no murmur [] Lungs & Thorax: Bilateral breath sounds clear to auscultation [] Abdomen: Bowel sounds normal, soft, no tenderness, no masses, no pulsatile masses. [] Skin: Warm, dry, no erythema, no rash. [] Back: No tenderness, no CVA tenderness. [] Extremities: No tenderness, no cyanosis, no clubbing, ROM intact, no edema. [] Neurologic: Alert and oriented X 3, normal motor function, normal sensory function, no focal deficits noted. [] Psychologic: Affect normal, judgement normal, mood normal. [] Current Patient Data: Vital Signs: Vital Signs Date Time Temp Pulse Resp B/P (MAP) Pulse Ox O2 Delivery O2 Flow Rate FiO2 05/12/21 20:26 98.8 79 16 137/80 (99) 96 Room Air EKG: EKG: [] Radiology/Procedures: Radiology/Procedures: [] Impressions: EXAM: AP View of the chest DATE: 05/12/2021 9:06 PM INDICATION: Reason: CP / Spl. Instructions: / History: COMPARISON: 03/27/2014 FINDINGS: The heart is not enlarged. Mediastinal and hilar contours are stable. Patchy right infrahilar and bilateral lung base airspace opacities. No pleural effusion or pneumothorax. IMPRESSION: Bilateral airspace opacities likely developing consolidative process such as pneumonia. Atelectasis could have this appearance. Electronically signed by: Sebastian Jenkins MD (05/12/2021 9:23 PM) [facility] DICTATED AND SIGNED BY: SEBASTIAN JENKINS MD DATE: 05/12/212121 CC: JAMIE ENGLAND DO; PCP,NO ~MTH0 0 Heart Score: C/O Chest Pain: Yes HEART Score for Chest Pain: HEART Score for Chest Pain Response (Comments) Value History Slighlty/Non-Suspicious 0 ECG Normal 0 Age < 45 0 Risk Factors 1 or 2 Risk Factors 1 Troponin < Normal Limit 0 Total 1 Risk Factors: Risk Factors: DM, Current or recent (<one month) smoker, HTN, HLP, family history of CAD, obesity. Risk Scores: Score 0 - 3: 2.5% MACE over next 6 weeks - Discharge Home Score 4 - 6: 20.3% MACE over next 6 weeks - Admit for Clinical Observation Score 7 - 10: 72.7% MACE over next 6 weeks - Early Invasive Strategies Course & Med Decision Making: Course & Med Decision Making Pertinent Labs and Imaging studies reviewed. (See chart for details) For the patient's chest discomfort I have given her 40 mg of Protonix and 20 mg of Pepcid. She is also given a liter normal saline and Zofran. The patient's chest x-ray is suggestive of developing. This could be COVID-19 or bacterial pneumonia. I will treat her with a gram of Rocephin IV in the ER and azithro mycin p.o. I have advised that she isolate herself until she feels completely well for at least 24 hours. She is stable for discharge at this time. [] Neisha Disclaimer: Dragemir Disclaimer: This electronic medical record was generated, in whole or in part, using a voice recognition dictation system. Departure Departure: Impression: Primary Impression: Bilateral pneumonia Additional Impression: Suspected COVID-19 virus infection Disposition: 01 HOME / SELF CARE / HOMELESS Condition: STABLE Referrals: PCP,NO (PCP) Patient Instructions: Pneumonia, Adult, [id number] Additional Instructions: You have been tested for or diagnosed with COVID-19. It is an infection caused by a new type of coronavirus. COVID-19 will cause cold-like or mild flu symptoms in most. It can cause more severe symptoms like problems breathing in some. There is no treatment for COVID-19. The body will clear the infection over time. Self-care will help to ease discomfort. Steps to Take: Self-Care Rest as needed. Healthy habits may help you feel better. Steps include: Choose healthy foods including fruits and vegetables. Drink water throughout the day. Get plenty of sleep each night. If you smoke, try to quit. It may ease breathing. Avoid alcohol. Keep Others Healthy The virus can spread to others. Droplets are released every time you sneeze or cough. The droplets can get into the mouth, nose, or eyes of people near you and lead to infection. To lower the chances of spreading COVID-19 to others: Stay at home until your doctor has said it is safe to leave. If you tested positive this will mean staying isolated until both of the following are true: At least 7 days have passed since the start of illness. You are free of fever for at least 72 hours without the use of medicine. During this time: - Avoid public areas, events, or transportation. Do not return to work or school until your doctor has said it is safe to do so. - Call ahead if you need to go to a medical center. Let them know you may have COVID-19. It will help them guide you where to go. They may also ask you to wear a facemask when you come to the office. - If you call for emergency medical services, let them know you may have COVID- 19. While at home: - Try to avoid close contact with others. Stay about 6 feet away. - If possible, spend most of your time in a separate room from others. - Use a face mask if you will be in close contact with others such as sharing a room or vehicle. - Have someone wipe down common surfaces in the home. Use household handle turner every day on areas like doorknobs, counters, or sinks. - Cough or sneeze into a tissue. Throw the tissue away right after use. If a tissue is not available, cough or sneeze into your elbow. - Wash your hands often. Wash them after sneezing or coughing. Use soap and water and wash for at least 20 seconds. Alcohol based hand steam cleaner can be used if soap and water is not available. - Do not prepare food for others. Avoid sharing personal items like forks, spoons, or toothbrushes. - Avoid close contact with pets while you are sick. There is no evidence of the virus passing to pets. This is a safety step until more is known about this virus. Isolation can be frustrating. Social interaction can help. Keep in touch with friends and family through phone and tech options. You can still interact with others in your home, just keep a safe distance of about 6 feet. Follow-up: Your doctors office will check in with you to see if there are any changes in your health. You may be asked to keep track of symptoms to share with them. They will also let you know when you are clear to be in public again. Problems to Look Out For: Contact your doctor if your recovery is not going as you expect. Get emergency care if you have problems such as: - Trouble breathing - Nonstop chest pain or pressure - Changes in awareness, confusion, or problems waking - Lips or face have bluish color - Worsening of symptoms If you think you have an emergency, call for emergency medical services right away. As taken from [facility] Ondansetron (ONDANSETRON ODT) 4 Mg Tab.rapdis 1 TAB PO PRN Q6-8HRS PRN for VOMITING, #16 TAB Prov: JAMIE ENGLAND DO 05/12/21 Azithromycin (AZITHROMYCIN TABLET) 250 Mg Tablet 250 MG PO DAILY for ANTI-BIOTIC for 4 Days, #4 TAB 0 Refills Prov: JAMIE ENGLAND DO 05/12/21 JAMIE ENGLAND DO May 12, 2021 20:42
[2021-05-12] MEDS ORDERED: FAMOTIDINE 20 MG/2 ML VIAL ONE (20:44)
[2021-05-12] MEDS ORDERED: PANTOPRAZOLE IV 40 MG VIAL. ONE (20:44)
[2021-05-12] MEDS: FAMOTIDINE 20 MG/2 ML VIAL IVP ONE (20:45)
[2021-05-12] MEDS: PANTOPRAZOLE IV 40 MG VIAL. IVP ONE (20:45)
[2021-05-12 20:51] LABS: BASO % 1 % (0-3); EOS # 0.1 x10^3/uL (0.0-0.7); EOS % 1 % (0-3); HEMATOCRIT 40.4 % (36.0-47.0); HEMOGLOBIN 13.8 g/dL (12.0-15.5); LYMPH # 2.1 x10^3/uL (1.0-4.8); LYMPH % 28 % (24-48); MEAN CORPUSCULAR HEMOGLOBIN 31 pg (25-35); MEAN CORPUSCULAR HGB CONC 34 g/dL (31-37); MEAN CORPUSCULAR VOLUME 89 fL (79-100); MONO # 0.6 x10^3/uL (0.0-1.1); MONO % 8 % (0-9); NEUT # 4.6 x10^3uL (1.8-7.7); NEUT % 63 % (31-73); PLATELET COUNT 249 x10^3/uL (140-400); RED BLOOD COUNT 4.53 x10^6/uL (3.50-5.40); WHITE BLOOD COUNT 7.4 x10^3/uL (4.0-11.0)
[2021-05-12 21:11] LABS: CALCIUM 9.2 mg/dL (8.5-10.1); CREATININE 0.8 mg/dL (0.6-1.0); GFR 88.1; POTASSIUM 3.8 mmol/L (3.5-5.1)
[2021-05-12 21:16] LABS: ALBUMIN 3.8 g/dL (3.4-5.0); ALBUMIN/GLOBULIN RATIO 1.1 (1.0-1.7); TOTAL BILIRUBIN 0.3 mg/dL (0.2-1.0); TOTAL PROTEIN 7.4 g/dL (6.4-8.2)
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
[2021-05-12] MEDS ORDERED: ONDA4TAB12 PO (22:00)
[2021-05-12] MEDS ORDERED: AZIT250T6 PO (22:00)
[2021-05-12] MEDS ORDERED: IV NORMAL SALINE 50ML 50 ML ONE (22:08)
[2021-05-12] MEDS ORDERED: cefTRIAXone SODIUM 1 GM VIAL ONE (22:08)
[2021-05-12] MEDS: AZITHROMYCIN 250 MG TABLET. PO ONE (22:14)
[2021-05-12 22:16] LABS: BACTERIA,URINE FEW /HPF (0-FEW); BILIRUBIN,URINE NEG (NEG); CLARITY,URINE CLEAR; COLOR,URINE YELLOW; GLUCOSE,URINE NEG (NEG); NITRITE,URINE NEG (NEG); RBC,URINE 0 /HPF (0-2); SQUAMOUS EPITHELIAL CELL,UR FEW /LPF
[2021-05-12 22:22] VITALS: BP 113/65
[2021-05-12 22:26] LABS: BARBITURATES NEG (NEG); BENZODIAZEPINES NEG (NEG); CANNABINOIDS NEG (NEG); COCAINE NEG (NEG); METHADONE NEG (NEG); OPIATES NEG (NEG); PHENCYCLIDINE NEG (NEG)
[2021-05-12 22:28] LABS: AMPHETAMINE/METHAMPHETAMINE NEG (NEG)
--- NOTE | 2021-05-13 13:57 | EKG ---
[address] [address] Test Date: 2021-05-12 Test Time: 20:25:42 Pat Name: KENIA CARTER Department: Room: Gender: F Director Of Community Education: MAURICIO : 1995 Requested By: JAMIE ENGLAND Order Number: [id number] Reading MD: Estevan Alejandro MD Measurements Intervals [place] Rate: 76 P: 36 UT: 154 QRS: 29 QRSD: 76 T: 22 QT: 358 QTc: 407 Interpretive Statements SINUS RHYTHM OTHERWISE NORMAL ECG RI6.02 No previous ECG available for comparison Electronically Signed On 05-13-2021 15:03:44 CDT by Estevan Alejandro MD
== END 2021-05-12 22:40 | disposition home or self-care (01) ==
LOC: ER 20:04
DX: J18.9 Pneumonia, unspecified organism (principal); Z20.822 Contact with and (suspected) exposure to COVID-19
CPT/HCPCS: 36415; 71045; 80053; 80307; 81001; 81025; 83690; 84484; 85025; 93005; 96361; 96365; 96375; 99285; C9113; J0696; J2405; J3490; J7030

== ENCOUNTER 2021-05-17 09:44 | Emergency (ER) | payer SELFPAY ==
[~2021-05-17] VITALS: Ht 160 cm; Wt 79.9 kg
[~2021-05-17 09:44] MED LIST changes: +AZIT250T6 PO; +ONDA4TAB12 PO
[2021-05-17 10:01] VITALS: BP 126/70
--- NOTE | 2021-05-17 10:12 | PHYS DOC ---
Past History Past Medical History: No Pertinent History Past Surgical History: No Surgical History Smoking: Non-smoker Alcohol Use: Rarely Drug Use: None Adult General Chief Complaint Chief Complaint: SHORTNESS OF BREATH HPI HPI Patient is a 26-year-old female reports emergency room complaining of ongoing difficulty breathing, reports she was diagnosed with bilateral pneumonia on May 12, was prescribed azithromycin regimen which she has completed, took Tylenol this morning without relief. Reports fevers at home of 101 daily. Denies taking other prescription or bklx-hqj-jxidcre medications, denies allergies to medications, states she has no primary care physician established. Last menstrual cycle was in 2018 when she had her Implanon placed. Denies other physical complaints or physical concerns. Denies receiving the COVID-19 virus vaccination series. Has not had a flu vaccine this year. Review of Systems Review of Systems 14 body systems of review of systems have been reviewed. See HPI for pertinent positives and negative responses, otherwise all other systems are negative, nonpertinent or noncontributory. Constitutional: Negative except as outlined in HPI above. Skin: Negative except as outlined in HPI above. Eyes: Negative except as outlined in HPI above. HENT: Negative except as outlined in HPI above. Respiratory: Negative except as outlined in HPI above. Cardiovascular: Negative except as outlined in HPI above. GI: Negative except as outlined in HPI above. : Negative except as outlined in HPI above. Musculoskeletal: Negative except as outlined in HPI above. Integument: Negative except as outlined in HPI above. Neurologic: Negative except as outlined in HPI above. Endocrine: Negative except as outlined in HPI above. Lymphatic: Negative except as outlined in HPI above. Psychiatric: Negative except as outlined in HPI above. Allergies Allergies Allergies Coded Allergies Type Severity Reaction Last Updated Verified No Known Drug Allergies 09/28/19 No Physical Exam Physical Exam Constitutional: Well developed, well nourished, no acute distress, non-toxic appearance. 26-year-old female in no apparent distress. HENT: Normocephalic, atraumatic. Oropharynx moist, pink, no deep tissue infectious process appreciated, bilateral TMs within normal limits. No lymphade nopathy of the head or neck appreciated. Eyes: Conjunctiva normal, no discharge. Neck: Normal range of motion, no stridor. Cardiovascular: No cyanosis appreciated, distal cap refill less than 2 seconds. Lungs & Thorax: Patient is in no respiratory distress, no audible adventitious lung sounds appreciated. Lung sounds clear to auscultate all lung estrada, no adventitious lung sounds appreciated per auscultation. Abdomen: Nontender, no abnormalities noted. Skin: Warm, dry, no erythema, no rash. Back: No tenderness, no deformities. Extremities: No tenderness, no cyanosis, no clubbing, ROM intact, no edema. Neurologic: Alert and oriented X 3, normal motor function, normal sensory function, no focal deficits noted. Psychologic: Affect normal, judgement normal, mood normal. EKG EKG [] Radiology/Procedures Radiology/Procedures PATIENT: KENIA CARTER ACCOUNT: [id number] : 1995 LOCATION: ER AGE: 26 SEX: F EXAM STATUS: REG ER ORD. PHYSICIAN: SHANTELL SOTO APRN REASON: Shortness of breath PROCEDURE: CHEST AP ONLY AP chest. HISTORY: Short of breath AP view was taken of the chest. Comparison is made with a study from May 12. There still mild infiltrate in the medial right lower lobe with little change. Heart is normal in size. There is no effusion. No new infiltrates are noted. IMPRESSION: 1. Persistent mild right basilar infiltrate. 2. No new areas of infiltrate. Electronically signed by: Shamar Hernandez MD (05/17/2021 10:45 AM) [facility] Heart Score C/O Chest Pain: No Risk Factors: Risk Factors: DM, Current or recent (<one month) smoker, HTN, HLP, family history of CAD, obesity. Risk Scores: Risk Factors: DM, Current or recent (<one month) smoker, HTN, HLP, family history of CAD, obesity. Course & Med Decision Making Course & Med Decision Making Pertinent Labs and Imaging studies reviewed. (See chart for details) 26-year-old female, vital signs reviewed, presents emergency department concer francis ongoing respiratory problems since being diagnosed with bilateral pneumonia on 12 May. Physical examination is unremarkable, the patient is not febrile, the patient is not in respiratory distress, the patient is not hypoxic, the patient is not toxic in appearance. We will give oral ibuprofen for respiratory discomfort, COVID-19 testing, flu test. Repeat chest x-ray to e valuate pneumonia progression. Patient's chest x-ray concerning for persistent right lower lobe infiltrate, will defer further antibiotic treatment related to patient testing positive for COVID-19, the patient's flu test is negative, the patient remains in no apparent distress, no respiratory distress, is not hypoxic, is not toxic in appearance, will prescribe albuterol MDI, reviewed results and ED discharge planning with patient, patient is amendable to ED discharge planning. Discussed COVID-19 virus quarantining, patient gave verbal understanding of, strict return turn to ER precautions and concerns, follow-up with primary care soon. Discussed with the patient all findings and diagnostic testing as well as the need to follow-up with their primary care provider for further evaluation and treatment or return to the ED if any new or worsening symptoms. Strict return precautions were also discussed at length, the patient voiced understanding and agreement with the discharge planning. The patient was nontoxic in appearance, in no apparent distress, and hemodynamically stable at the time of disposition. Dragon Disclaimer Dragon Disclaimer This electronic medical record was generated, in whole or in part, using a voice recognition dictation system. Departure Departure: Impression: Primary Impression: SARS-CoV-2 positive Additional Impression: Viral pneumonia Disposition: HOME / SELF CARE / HOMELESS Condition: GOOD Referrals: PCP,NO (PCP) Additional Instructions: You were seen today in the emergency department for ongoing respiratory symptoms. A rapid COVID-19 test was performed today along with a rapid flu test, you do not have the flu, your COVID-19 virus test is positive. As we discussed, I am prescribing an albuterol MDI to help with breathing problems, please review attached COVID-19 virus information, follow-up with a primary care provider soon, you had indicated you do not have a primary care provider, you may consider using the [facility] [place] [place] [address] [place] [address], other telephone number is [phone], return to the emergency department for worsening symptoms or other concerns. Thank you for visiting our Emergency Department. It was a pleasure taking care of you today in the emergency department and we appreciate you trusting us with your care. If any additional problems come up don't hesitate to return to visit us. Please follow up with your primary care provider so they can plan additional care if needed and know about the problem that you had. If symptoms worsen come back to the Emergency Department. Any concerning symptoms that start such as chest pain, shortness of air, weakness or numbness on one side of the body, running high fevers or any other concerning symptoms return to the ER. You have been tested for or diagnosed with COVID-19. It is an infection caused by a new type of coronavirus. COVID-19 will cause cold-like or mild flu symptoms in most. It can cause more severe symptoms like problems breathing in some. There is no treatment for COVID-19. The body will clear the infection over time. Self-care will help to ease discomfort. Steps to Take: Self-Care Rest as needed. Healthy habits may help you feel better. Steps include: Choose healthy foods including fruits and vegetables. Drink water throughout the day. Get plenty of sleep each night. If you smoke, try to quit. It may ease breathing. Avoid alcohol. Keep Others Healthy The virus can spread to others. Droplets are released every time you sneeze or cough. The droplets can get into the mouth, nose, or eyes of people near you and lead to infection. To lower the chances of spreading COVID-19 to others: Stay at home until your doctor has said it is safe to leave. If you tested positive this will mean staying isolated until both of the following are true: At least 7 days have passed since the start of illness. You are free of fever for at least 72 hours without the use of medicine. During this time: - Avoid public areas, events, or transportation. Do not return to work or school until your doctor has said it is safe to do so. - Call ahead if you need to go to a medical center. Let them know you may have COVID-19. It will help them guide you where to go. They may also ask you to wear a facemask when you come to the office. - If you call for emergency medical services, let them know you may have COVID- 19. While at home: - Try to avoid close contact with others. Stay about 6 feet away. - If possible, spend most of your time in a separate room from others. - Use a face mask if you will be in close contact with others such as sharing a room or vehicle. - Have someone wipe down common surfaces in the home. Use household practice managers every day on areas like doorknobs, counters, or sinks. - Cough or sneeze into a tissue. Throw the tissue away right after use. If a ti ssue is not available, cough or sneeze into your elbow. - Wash your hands often. Wash them after sneezing or coughing. Use soap and water and wash for at least 20 seconds. Alcohol based hand metal cleaner can be used if soap and water is not available. - Do not prepare food for others. Avoid sharing personal items like forks, spoons, or toothbrushes. - Avoid close contact with pets while you are sick. There is no evidence of the virus passing to pets. This is a safety step until more is known about this virus. Isolation can be frustrating. Social interaction can help. Keep in touch with friends and family through phone and tech options. You can still interact with others in your home, just keep a safe distance of about 6 feet. Follow-up: Your doctors office will check in with you to see if there are any changes in your health. You may be asked to keep track of symptoms to share with them. They will also let you know when you are clear to be in public again. Problems to Look Out For: Contact your doctor if your recovery is not going as you expect. Get emergency care if you have problems such as: - Trouble breathing - Nonstop chest pain or pressure - Changes in awareness, confusion, or problems waking - Lips or face have bluish color - Worsening of symptoms If you think you have an emergency, call for emergency medical services right away. As taken from [employer] [facility] Albuterol Sulfate (PROAIR HFA INHALER) 8.5 Gm Hfa.aer.ad 2 PUFF IH PRN Q4-6HRS PRN for wheezing for 21 Days, #1 INHALER 0 Refills Prov: SHANTELL SOTO APRN 05/17/21 Problem Qualifiers SHANTELL SOTO APRN May 17, 2021 10:12
[2021-05-17] MEDS ORDERED: IBUPROFEN 600 MG TABLET. PO ONE (10:15)
--- NOTE | 2021-05-17 10:48 | RAD ---
AP chest. HISTORY: Short of breath AP view was taken of the chest. Comparison is made with a study from May 12. There still mild inf iltrate in the medial right lower lobe with little change. Heart is normal in size. There is no effus ion. No new infiltrates are noted. IMPRESSION: 1. Persistent mild right basilar infiltrate. 2. No new areas of infiltrate. Electronically signed by: Shamar Hernandez MD (05/17/2021 10:45 AM) [facility]
[2021-05-17 11:10] LABS: INFLUENZA A PATIENT NEGATIVE (NEGATIVE)
[2021-05-17 11:11] LABS: INFLUENZA B PATIENT NEGATIVE (NEGATIVE)
[2021-05-17] MEDS ORDERED: ALBU2.5V8 IH (11:25)
== END 2021-05-17 11:27 | disposition home or self-care (01) ==
LOC: ER 09:44
DX: U07.1 COVID-19 (principal); J12.82 Pneumonia due to coronavirus disease 2019
CPT/HCPCS: 71045; 87426; 87804; 99284-25

== ENCOUNTER 2021-05-20 07:27 | Emergency (ER) | payer SELFPAY ==
[~2021-05-20] VITALS: Ht 160 cm; Wt 78.7 kg
[~2021-05-20 07:27] MED LIST changes: +ALBU2.5V8 IH
[2021-05-20 07:35] VITALS: BP 116/76
[2021-05-20] MEDS ORDERED: IV NORMAL SALINE 1,000ML 1,000 ML IV ONE (07:45)
[2021-05-20] MEDS ORDERED: ONDANSETRON PF 4 MG/2 ML VIAL. IVP ONE ×2 (07:45→10:45)
[2021-05-20] MEDS ORDERED: KETOROLAC 15 MG/ML VIAL. IVP ONE (07:45)
[2021-05-20] MEDS ORDERED: FAMOTIDINE 20 MG/2 ML VIAL IVP ONE (07:45)
--- NOTE | 2021-05-20 07:53 | PHYS DOC ---
Past History Past Medical History: No Pertinent History Past Surgical History: No Surgical History Smoking: Non-smoker Alcohol Use: None Drug Use: None General Adult EDM: Chief Complaint: CHEST PAIN HPI: HPI: Patient is a previously healthy 26 yo F presenting with chest pain that began this morning at 3 AM. She reports this chest pain as stabbing on the left side of her chest that was worse with a deep breath and did not radiate anywhere. She reports associated shortness of breath and weakness. She was previously diagnosed with bilateral COVID pneumonia. She was given azithromycin, zofran, and albuterol inhaler per brief [facility] review. She reports that for the past week she has had fevers, nausea, vomiting, diarrhea, and muscle pain. Denies trauma. Denies COVID-19 vaccination. Review of Systems: Review of Systems: Constitutional: Reports fevers and chills Eyes: Denies redness or eye pain HENT: Denies nasal congestion or sore throat Respiratory: Reports cough and shortness of breath Cardiovascular: Denies palpitations; reports chest pain GI: Reports nausea, vomiting, and abdominal pain : Denies dysuria or hematuria Musculoskeletal: Denies back pain or joint pain Integument: Denies rash or skin lesions Neurologic: Denies focal weakness or sensory changes; reports headache Complete systems were reviewed and found to be within normal limits, except as documented in this note. Current Medications: Current Meds: Current Medications Medications (Trade) Dose Ordered Sig/[facility] Start Time Stop Time Status Last Admin Dose Admin Famotidine (Pepcid Vial) 20 mg 1X ONCE 05/20/21 07:45 05/20/21 07:46 UNV Ketorolac Tromethamine (Toradol 15mg Vial) 15 mg 1X ONCE 05/20/21 07:45 05/20/21 07:46 UNV Ondansetron HCl (Zofran) 4 mg 1X ONCE 05/20/21 07:45 05/20/21 07:46 UNV Sodium Chloride 1,000 ml @ 1,000 mls/hr 1X ONCE 05/20/21 07:45 05/20/21 08:44 UNV Allergies: Allergies: Allergies Coded Allergies Type Severity Reaction Last Updated Verified No Known Drug Allergies 05/20/21 No Physical Exam: PE: Constitutional: Well developed, well nourished, no acute distress, non-toxic appearance HENT: Normocephalic, atraumatic Eyes: PERRL, EOMI, conjunctiva normal, no discharge Neck: Normal range of motion, no tenderness, supple Lungs & Thorax: No respiratory distress, equal chest rise and fall, diminished breath sounds throughout Abdomen: Soft, some epigastric tenderness to palpation Skin: Warm, dry, no erythema, no rash Back: No tenderness, no CVA tenderness Extremities: No tenderness, ROM intact, no edema Neurologic: Alert and oriented X 3, normal motor function, normal sensory function, no focal deficits noted Psychologic: Affect normal, judgment normal Current Patient Data: Vital Signs: Vital Signs Date Time Temp Pulse Resp B/P (MAP) Pulse Ox O2 Delivery O2 Flow Rate FiO2 05/20/21 07:35 99.4 88 18 116/76 (89) 94 EKG: EKG: @0741 NSR at 89bpm, NO ST elevation, QRS 78ms, QT/QTc 340/415ms Radiology/Procedures: Radiology/Procedures: PROCEDURE: CT ANGIOGRAPHY CHEST CTA CHEST History: Chest pain, elevated d-dimer. Comparison: None. Technique: CTA of the pulmonary arteries with intravenous contrast. 3-D pos tprocessing was performed. Findings: Pulmonary arteries: No pulmonary embolism. Aorta and great vessels: No aneurysm or dissection of the aortic arch or thoracic aorta. Thyroid: No significant abnormalities. Mediastinum and jay: No mediastinal masses or adenopathy is seen. Esophagus: The visualized esophagus is normal. Heart: The heart is normal in size. There is no pericardial effusion. Airways, Lungs, Pleura: There are patchy multifocal opacities centered at the posterior right lower lobe, also involving the right upper lobe to a lesser extent. Left lower lobe opacities are favored to represent dependent changes. No pleural effusion or pneumothorax. Upper abdomen: Limited evaluation of the upper abdomen is unremarkable. Osseous structures and soft tissues: Within normal limits for age. Impression: 1. No pulmonary embolism, aortic aneurysm or aortic dissection. 2. Multifocal airspace disease primarily involving the right lower lobe and to a lesser extent the left upper lobe concerning for pneumonia. ------ Exposure: One or more of the following individualized dose reduction techniques were utilized for this examination: 1. Automated exposure control 2. Adjustment of the mA and/or kV according to patient size 3. Use of iterative reconstruction technique. Electronically signed by: Aram Naqvi MD (05/20/2021 9:33 AM) [facility] Heart Score: C/O Chest Pain: Yes HEART Score for Chest Pain: HEART Score for Chest Pain Response (Comments) Value History Slighlty/Non-Suspicious 0 ECG Normal 0 Age < 45 0 Risk Factors No Risk Factors 0 Troponin < Normal Limit 0 Total 0 Risk Factors: Risk Factors: DM, Current or recent (<one month) smoker, HTN, HLP, family history of CAD, obesity. Risk Scores: Score 0 - 3: 2.5% MACE over next 6 weeks - Discharge Home Score 4 - 6: 20.3% MACE over next 6 weeks - Admit for Clinical Observation Score 7 - 10: 72.7% MACE over next 6 weeks - Early Invasive Strategies Course & Med Decision Making: Course & Med Decision Making Pertinent Labs and Imaging studies reviewed. (See chart for details) Patient is a previously healthy 26-year-old female presenting with Covid pneumonia and chest pain. Sats stable. Heart score of 0. EKG showed no acute ST changes. Labs were unremarkable besides an elevated D-dimer of 1.96. CTA chest showed no evidence of pulmonary embolism but continued to demonstrate signs of Covid pneumonia.. Patient's pain and nausea improved with Toradol and Zofran. 1 L of normal saline was given and she clinically improved. Patient was prescribed azithromycin and albuterol inhaler on Wednesday. Will advise her to continue those and also give incentive spirometer. Will advise her to take Tylenol and ibuprofen for fever. Patient stable for discharge with outpatient follow-up with PCP. Discussed findings and plan with patient, who acknowledges understanding and agreement. UA and urine initially ordered. Patient was not able to provide sample initially. UA unremarkable and Upreg negative on 05/12/21. Patient without urinary symptoms. UA and urine therefore cancelled. COVID-19 CRITERIA: The patient was evaluated during the global COVID-19 pandemic, and that diagnosis was suspected/considered upon their initial presentation. Their evaluation, treatment and testing was consistent with current guidelines for patients who present with complaints or symptoms that may be related to COVID-19. Neisha Disclaimer: Neisha Disclaimer: This electronic medical record was generated, in whole or in part, using a voice recognition dictation system. Departure Departure: Impression: Primary Impression: Pneumonia due to 2019 novel coronavirus Additional Impression: Nausea and vomiting Qualified Codes: R11.2 - Nausea with vomiting, unspecified Disposition: HOME / SELF CARE / HOMELESS Condition: STABLE Referrals: PCP,NO (PCP) Patient Instructions: Clear Liquid Diet, [id number], Incentive Spirometer, Nausea and Vomiting, Knxp-vv-Lxmo, Viral Syndrome Additional Instructions: Continue previously prescribed antibiotic. May also use previously prescribed nausea medication and inhaler as needed. You have been tested for or diagnosed with COVID-19. It is an infection caused by a new type of coronavirus. COVID-19 will cause cold-like or mild flu symptoms in most. It can cause more severe symptoms like problems breathing in some. There is no treatment for COVID-19. The body will clear the infection over time. Self-care will help to ease discomfort. Steps to Take: Self-Care Rest as needed. Healthy habits may help you feel better. Steps include: Choose healthy foods including fruits and vegetables. Drink water throughout the day. Get plenty of sleep each night. If you smoke, try to quit. It may ease breathing. Avoid alcohol. Keep Others Healthy The virus can spread to others. Droplets are released every time you sneeze or cough. The droplets can get into the mouth, nose, or eyes of people near you and lead to infection. To lower the chances of spreading COVID-19 to others: Stay at home until your doctor has said it is safe to leave. If you tested positive this will mean staying isolated until both of the following are true: At least 7 days have passed since the start of illness. You are free of fever for at least 72 hours without the use of medicine. During this time: - Avoid public areas, events, or transportation. Do not return to work or school until your doctor has said it is safe to do so. - Call ahead if you need to go to a medical center. Let them know you may have COVID-19. It will help them guide you where to go. They may also ask you to wear a facemask when you come to the office. - If you call for emergency medical services, let them know you may have COVID- 19. While at home: - Try to avoid close contact with others. Stay about 6 feet away. - If possible, spend most of your time in a separate room from others. - Use a face mask if you will be in close contact with others such as sharing a room or vehicle. - Have someone wipe down common surfaces in the home. Use household commercial shrimping captain every day on areas like doorknobs, counters, or sinks. - Cough or sneeze into a tissue. Throw the tissue away right after use. If a tissue is not available, cough or sneeze into your elbow. - Wash your hands often. Wash them after sneezing or coughing. Use soap and water and wash for at least 20 seconds. Alcohol based hand mainspring barrel assembly cleaner can be used if soap and water is not available. - Do not prepare food for others. Avoid sharing personal items like forks, spoons, or toothbrushes. - Avoid close contact with pets while you are sick. There is no evidence of the virus passing to pets. This is a safety step until more is known about this virus. Isolation can be frustrating. Social interaction can help. Keep in touch with friends and family through phone and tech options. You can still interact with others in your home, just keep a safe distance of about 6 feet. Follow-up: Your doctors office will check in with you to see if there are any changes in your health. You may be asked to keep track of symptoms to share with them. They will also let you know when you are clear to be in public again. Problems to Look Out For: Contact your doctor if your recovery is not going as you expect. Get emergency care if you have problems such as: - Trouble breathing - Nonstop chest pain or pressure - Changes in awareness, confusion, or problems waking - Lips or face have bluish color - Worsening of symptoms If you think you have an emergency, call for emergency medical services right away. As taken from [facility] Promethazine Hcl (PROMETHAZINE HCL) 25 Mg Supp.rect 25 MG RC Q6-8HRS PRN for NAUSEA, #14 SUPP.RECT Prov: SHANTELL CHA DO 05/20/21 COVID-19 Assessment COVID-19 Patient Risks: Age 65 or older: No Sign of co-morbidity: No Exp to person + for COVID: Yes Exp to PUI: No Travel from affected area: No Lower respiratory symptoms: Yes Fever: Yes Other: Yes PPE Use: Full PPE with N95 mask or PAPR: Yes SHANTELL CHA DO May 20, 2021 07:53
--- NOTE | 2021-05-20 08:06 | EKG ---
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
[2021-05-20 08:07] LABS: BASO % 0 % (0-3); EOS % 0 % (0-3); HEMATOCRIT 42.6 % (36.0-47.0); HEMOGLOBIN 14.5 g/dL (12.0-15.5); LYMPH # 1.5 x10^3/uL (1.0-4.8); LYMPH % 31 % (24-48); MEAN CORPUSCULAR HEMOGLOBIN 30 pg (25-35); MEAN CORPUSCULAR HGB CONC 34 g/dL (31-37); MEAN CORPUSCULAR VOLUME 88 fL (79-100); MONO # 0.3 x10^3/uL (0.0-1.1); MONO % 7 % (0-9); NEUT % 61 % (31-73); PLATELET COUNT 119 x10^3/uL (140-400); RED BLOOD COUNT 4.83 x10^6/uL (3.50-5.40); RED CELL DISTRIBUTION WIDTH 12.9 % (11.5-14.5); WHITE BLOOD COUNT 4.8 x10^3/uL (4.0-11.0)
[2021-05-20 08:17] LABS: ANION GAP 11 (6-14); BLOOD UREA NITROGEN 11 mg/dL (7-20); BUN/CREATININE RATIO 11 (6-20); CARBON DIOXIDE 26 mmol/L (21-32); CHLORIDE 104 mmol/L (98-107); GFR 68.1; GLUCOSE 90 mg/dL (70-99); POTASSIUM 3.7 mmol/L (3.5-5.1); SODIUM 141 mmol/L (136-145)
[2021-05-20 08:33] LABS: ALBUMIN 3.8 g/dL (3.4-5.0); ALK PHOS 48 U/L (46-116); ALT (SGPT) 39 U/L (14-59); AST (SGOT) 27 U/L (15-37); LIPASE 168 U/L (73-393); MAGNESIUM 1.9 mg/dL (1.8-2.4); TOTAL BILIRUBIN 0.2 mg/dL (0.2-1.0); TOTAL PROTEIN 7.6 g/dL (6.4-8.2)
[2021-05-20] MEDS ORDERED: IOHEXOL 350 MG/ML 100 ML VIAL. IV ONE (09:15)
--- NOTE | 2021-05-20 09:36 | RAD ---
CTA CHEST History: Chest pain, elevated d-dimer. Comparison: None. Technique: CTA of the pulmonary arteries with intravenous contrast. 3-D postprocessing was performed. Findings: Pulmonary arteries: No pulmonary embolism. Aorta and great vessels: No aneurysm or dissection of the aortic arch or thoracic aorta. Thyroid: No significant abnormalities. Mediastinum and jay: No mediastinal masses or adenopathy is seen. Esophagus: The visualized esophagus is normal. Heart: The heart is normal in size. There is no pericardial effusion. Airways, Lungs, Pleura: There are patchy multifocal opacities centered at the posterior right lower l obe, also involving the right upper lobe to a lesser extent. Left lower lobe opacities are favored to represent dependent changes. No pleural effusion or pneumothorax. Upper abdomen: Limited evaluation of the upper abdomen is unremarkable. Osseous structures and soft tissues: Within normal limits for age. Impression: 1. No pulmonary embolism, aortic aneurysm or aortic dissection. 2. Multifocal airspace disease primarily involving the right lower lobe and to a lesser extent the l eft upper lobe concerning for pneumonia. ------ Exposure: One or more of the following individualized dose reduction techniques were utilized for thi s examination: 1. Automated exposure control 2. Adjustment of the mA and/or kV according to patient size 3. Use of iterative reconstruction technique. Electronically signed by: Aram Naqvi MD (05/20/2021 9:33 AM) [facility]
[2021-05-20] MEDS ORDERED: PROM25SU33 RC (10:10)
[2021-05-20] MEDS ORDERED: METOCLOPRAMIDE HCL 10 MG/2 ML VIAL. IVP ONE (11:30)
[2021-05-20] MEDS ORDERED: diphenhydrAMINE 50 MG/ML VIAL IVP ONE (11:30)
== END 2021-05-20 12:06 | disposition home or self-care (01) ==
LOC: ER 07:27
DX: U07.1 COVID-19 (principal); J12.82 Pneumonia due to coronavirus disease 2019; R11.2 Nausea with vomiting, unspecified
CPT/HCPCS: 36415; 71275; 80053; 82553; 83605; 83690; 83735; 83880; 84484; 85025; 85379; 85610; 85730; 93005; 96361; 96374; 96375; 96376; 99285; G0238; J1200; J1885; J2405; J2765; J3490; J7030; Q9967

== ENCOUNTER 2021-06-04 17:05 | Emergency (ER) | payer SELFPAY ==
[~2021-06-04] VITALS: Ht 160 cm; Wt 78.7 kg
[2021-06-04] MEDS: DEXAMETHASONE SOD PHOS 10 MG/ML VIAL. PO ONE (17:45)
[2021-06-04 17:51] VITALS: BP 127/80
--- NOTE | 2021-06-04 18:26 | RAD ---
Exam: Chest one view INDICATION: Cough TECHNIQUE: Frontal view of the chest Comparisons: 05/17/2021 FINDINGS: The cardiomediastinal silhouette and pulmonary vessels are within normal limits. The lung and pleural spaces are clear. IMPRESSION: No acute cardiopulmonary process. Electronically signed by: Jerome Mahoney MD (06/04/2021 6:23 PM) [facility]
--- NOTE | 2021-06-04 18:42 | PHYS DOC ---
Past History Past Medical History: No Pertinent History Past Surgical History: No Surgical History Smoking: Non-smoker Alcohol Use: None Drug Use: None General Adult EDM: Chief Complaint: SHORTNESS OF BREATH HPI: HPI: 26-year-old female presents with shortness of breath with productive cough that is been ongoing for the past month. Patient reports history of COVID-19 which was diagnosed approximately 1 month ago. Patient noted to have concerns for bilateral COVID pneumonia on x-ray imaging. Patient reports symptoms have been ongoing and is concerned she might need further treatment for pneumonia. Denies leg swelling or calf tenderness. Denies chest pain. Denies . Review of Systems: Review of Systems: Constitutional: Denies fever or chills; reports generalized malaise Eyes: Denies redness or eye pain HENT: Reports nasal congestion ; denies sore throat Respiratory: Reports productive cough and shortness of breath Cardiovascular: Denies chest pain or palpitations GI: Denies abdominal pain, nausea, or vomiting : Denies dysuria or hematuria Musculoskeletal: Denies back pain or joint pain Integument: Denies rash or skin lesions Neurologic: Denies headache, focal weakness or sensory changes Complete systems were reviewed and found to be within normal limits, except as documented in this note. Current Medications: Current Meds: Current Medications Medications (Trade) Dose Ordered Sig/[facility] Start Time Stop Time Status Last Admin Dose Admin Dexamethasone Sodium Phosphate (Decadron) 10 mg 1X ONCE 06/04/21 17:45 06/04/21 17:46 DC 06/04/21 17:45 10 MG Allergies: Allergies: Allergies Coded Allergies Type Severity Reaction Last Updated Verified No Known Drug Allergies 05/20/21 No Physical Exam: PE: Constitutional: Well developed, well nourished, no acute distress, non-toxic appearance HENT: Normocephalic, atraumatic, TMs clear bilaterally, nares clear, pharynx without erythema or exudate Eyes: PERRL, EOMI, conjunctiva normal, no discharge Neck: Normal range of motion, no tenderness, supple, no meningeal signs Lungs & Thorax: No respiratory distress, equal chest rise and fall Abdomen: Soft, no tenderness Skin: Warm, dry, no erythema, no rash Extremities: No tenderness, ROM intact, no edema Neurologic: Alert and oriented X 3, no focal deficits noted Psychologic: Affect normal, judgment normal Current Patient Data: Vital Signs: Vital Signs Date Time Temp Pulse Resp B/P (MAP) Pulse Ox O2 Delivery O2 Flow Rate FiO2 06/04/21 17:51 98.6 74 16 127/80 (96) 99 Room Air EKG: EKG: [] Radiology/Procedures: Radiology/Procedures: PROCEDURE: CHEST AP ONLY Exam: Chest one view INDICATION: Cough TECHNIQUE: Frontal view of the chest Comparisons: 05/17/2021 FINDINGS: The cardiomediastinal silhouette and pulmonary vessels are within normal limits. The lung and pleural spaces are clear. IMPRESSION: No acute cardiopulmonary process. Electronically signed by: Jerome Mahoney MD (06/04/2021 6:23 PM) [facility] Heart Score: C/O Chest Pain: N/A Course & Med Decision Making: Course & Med Decision Making Pertinent Imaging studies reviewed. (See chart for details) Patient presents with report of shortness of breath and productive cough which has been ongoing for the past month after recent diagnosis of COVID-19. Sats stable. Patient is currently afebrile. Chest x-ray without acute process. Symptomatic treatment provided. Patient stable for discharge with outpatient follow-up with PCP. Discussed findings and plan with patient, who acknowledges understanding and agreement. Neisha Disclaimer: Neisha Disclaimer: This electronic medical record was generated, in whole or in part, using a voice recognition dictation system. Departure Departure: Impression: Primary Impression: COVID-19 Disposition: 01 HOME / SELF CARE / HOMELESS Condition: STABLE Referrals: PCP,NO (PCP) Patient Instructions: Viral Syndrome Additional Instructions: Use bedside humidifier while sleeping. May take [id number] cold and cough remedies. May also use lgkg-mef-rsihruo ibuprofen and or Tylenol for pain, fever, or discomfort. You have been tested for or diagnosed with COVID-19. It is an infection caused by a new type of coronavirus. COVID-19 will cause cold-like or mild flu symptoms in most. It can cause more severe symptoms like problems breathing in some. There is no treatment for COVID-19. The body will clear the infection over time. Self-care will help to ease discomfort. Steps to Take: Self-Care Rest as needed. Healthy habits may help you feel better. Steps include: Choose healthy foods including fruits and vegetables. Drink water throughout the day. Get plenty of sleep each night. If you smoke, try to quit. It may ease breathing. Avoid alcohol. Keep Others Healthy The virus can spread to others. Droplets are released every time you sneeze or cough. The droplets can get into the mouth, nose, or eyes of people near you and lead to infection. To lower the chances of spreading COVID-19 to others: Stay at home until your doctor has said it is safe to leave. If you tested positive this will mean staying isolated until both of the following are true: At least 7 days have passed since the start of illness. You are free of fever for at least 72 hours without the use of medicine. During this time: - Avoid public areas, events, or transportation. Do not return to work or school until your doctor has said it is safe to do so. - Call ahead if you need to go to a medical center. Let them know you may have COVID-19. It will help them guide you where to go. They may also ask you to wear a facemask when you come to the office. - If you call for emergency medical services, let them know you may have COVID- 19. While at home: - Try to avoid close contact with others. Stay about 6 feet away. - If possible, spend most of your time in a separate room from others. - Use a face mask if you will be in close contact with others such as sharing a room or vehicle. - Have someone wipe down common surfaces in the home. Use household gum machine operator every day on areas like doorknobs, counters, or sinks. - Cough or sneeze into a tissue. Throw the tissue away right after use. If a tissue is not available, cough or sneeze into your elbow. - Wash your hands often. Wash them after sneezing or coughing. Use soap and water and wash for at least 20 seconds. Alcohol based hand machinery cleaner can be used if soap and water is not available. - Do not prepare food for others. Avoid sharing personal items like forks, sp oons, or toothbrushes. - Avoid close contact with pets while you are sick. There is no evidence of the virus passing to pets. This is a safety step until more is known about this virus. Isolation can be frustrating. Social interaction can help. Keep in touch with friends and family through phone and tech options. You can still interact with others in your home, just keep a safe distance of about 6 feet. Follow-up: Your doctors office will check in with you to see if there are any changes in your health. You may be asked to keep track of symptoms to share with them. They will also let you know when you are clear to be in public again. Problems to Look Out For: Contact your doctor if your recovery is not going as you expect. Get emergency care if you have problems such as: - Trouble breathing - Nonstop chest pain or pressure - Changes in awareness, confusion, or problems waking - Lips or face have bluish color - Worsening of symptoms If you think you have an emergency, call for emergency medical services right away. As taken from [facility] SHANTELL CHA DO Jun 04, 2021 18:41
== END 2021-06-04 18:44 | disposition home or self-care (01) ==
LOC: ER 17:05
DX: U07.1 COVID-19 (principal)
CPT/HCPCS: 71045; 99283; J1100

== ENCOUNTER 2021-08-11 16:02 | Emergency (ER) | payer OTHER ==
[~2021-08-11] VITALS: Ht 160 cm; Wt 82.5 kg
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
[2021-08-11] MEDS ORDERED: HYDROcodone/APAP 5/325MG 1 TAB TABLET PO ONE (17:15)
[2021-08-11 17:30] VITALS: BP 124/72
== END 2021-08-11 17:32 | disposition home or self-care (01) ==
LOC: ER 16:02
DX: S20.219A Contusion of unspecified front wall of thorax, initial encounter (principal); V89.2XXA Person injured in unspecified motor-vehicle accident, traffic, initial encounter; Y93.89 Activity, other specified; Y92.89 Other specified places as the place of occurrence of the external cause; Y99.8 Other external cause status
CPT/HCPCS: 71101; 99283

== ENCOUNTER 2021-09-26 08:07 | Emergency (ER) | payer OTHER ==
[~2021-09-26] VITALS: Ht 160 cm; Wt 78.0 kg
[2021-09-26] MEDS ORDERED: ONDANSETRON PF 4 MG/2 ML VIAL. IVP ONE (08:45)
[2021-09-26] MEDS ORDERED: IV NORMAL SALINE 1,000ML 1,000 ML IV ONE (08:45)
--- NOTE | 2021-09-26 08:57 | PHYS DOC ---
Past History Past Medical History: No Pertinent History Past Surgical History: No Surgical History Smoking: Non-smoker Alcohol Use: Rarely Drug Use: None General Adult EDM: Chief Complaint: HEMATEMESIS/VOMITING BLOOD HPI: HPI: 26-year-old female presents with vomiting for 3 days. Patient presents today because she cannot keep any liquids or solids down. She also had some blood in her emesis today. She has not had diarrhea. She has had a couple of normal stools last few days. She has some periumbilical abdominal pain that is mild to moderate in intensity. She was diagnosed with possible pneumonia at urgent care but placed on prednisone. Vomiting started after the urgent care visit. She has no known allergies. Denies fever or chills. Review of Systems: Review of Systems: Constitutional: Denies fever or chills Eyes: Denies change in visual acuity HENT: Denies nasal congestion or sore throat Respiratory: Cough without shortness of breath Cardiovascular: Denies chest pain or edema GI: Periumbilical abdominal pain, nausea, vomiting. : Denies dysuria Musculoskeletal: Denies back pain or joint pain Integument: Denies rash Neurologic: Denies headache, focal weakness or sensory changes Endocrine: Denies polyuria or polydipsia Lymphatic: Denies swollen glands Psychiatric: Denies depression or anxiety Current Medications: Current Meds: Current Medications Medications (Trade) Dose Ordered Sig/[facility] Start Time Stop Time Status Last Admin Dose Admin Ondansetron HCl (Zofran) 4 mg 1X ONCE 09/26/21 08:45 09/26/21 08:46 DC Sodium Chloride 1,000 ml @ 1,000 mls/hr 1X ONCE 09/26/21 08:45 09/26/21 09:44 Allergies: Allergies: Allergies Coded Allergies Type Severity Reaction Last Updated Verified No Known Drug Allergies 05/20/21 No Physical Exam: PE: Constitutional: Well developed, well nourished, no acute distress, non-toxic appearance. [] HENT: Normocephalic, atraumatic, bilateral external ears normal, oropharynx moist, no oral exudates, nose normal. [] Eyes: PERRLA, EOMI, conjunctiva normal, no discharge. [] Neck: Normal range of motion, no tenderness, supple, no stridor. [] Cardiovascular: Heart rate regular rhythm, no murmur [] Lungs & Thorax: Bilateral breath sounds clear to auscultation [] Abdomen: Bowel sounds normal, soft, mild periumbilical tenderness, no masses, no pulsatile masses. [] Skin: Warm, dry, no erythema, no rash. [] Back: No tenderness, no CVA tenderness. [] Extremities: No tenderness, no cyanosis, no clubbing, ROM intact, no edema. [] Neurologic: Alert and oriented X 3, normal motor function, normal sensory function, no focal deficits noted. [] Psychologic: Affect normal, judgement normal, mood normal. [] EKG: EKG: [] Radiology/Procedures: Radiology/Procedures: [] Impressions: CT ABDOMEN+PELVIS W History: Periumbilical pain and vomiting. Comparison: CT abdomen and pelvis 09/28/2019 Technique: CT of the abdomen and pelvis with intravenous contrast. Findings: The lung bases are clear. The liver, gallbladder, pancreas, spleen, adrenal glands, and kidneys are within normal limits. The stomach and small bowel are unremarkable. Normal appendix. Mild gaseous distention of the colon. No colonic wall thickening or pericolonic inflammatory changes. The uterus and adnexa are unremarkable. The bladder is decompressed. No intra-abdominal free air or free fluid. No adenopathy. Vasculature is within normal limits. Impression: 1. No acute findings in the abdomen and pelvis. ------ Exposure: One or more of the following individualized dose reduction techniques were utilized for this examination: 1. Automated exposure control 2. Adjustment of the mA and/or kV according to patient size 3. Use of iterative reconstruction technique. Electronically signed by: Aram Naqvi MD (09/26/2021 9:57 AM) [id number] DICTATED AND SIGNED BY: ARAM NAQVI MD DATE: 09/26/21 0951 CC: JAMIE ENGLAND DO; PCP,NO ~MTH0 0 Heart Score: C/O Chest Pain: N/A Risk Factors: Risk Factors: DM, Current or recent (<one month) smoker, HTN, HLP, family history of CAD, obesity. Risk Scores: Score 0 - 3: 2.5% MACE over next 6 weeks - Discharge Home Score 4 - 6: 20.3% MACE over next 6 weeks - Admit for Clinical Observation Score 7 - 10: 72.7% MACE over next 6 weeks - Early Invasive Strategies Course & Med Decision Making: Course & Med Decision Making Pertinent Labs and Imaging studies reviewed. (See chart for details) And give the patient a liter normal saline and 4 mg of Zofran IV. Her labs are unremarkable except for a slightly low potassium of 3.3. She typically runs around 3.7 based on her previous chart. Chest x-ray is negative for acute findings. CT of the abdomen pelvis is negative for acute findings. This is likely some kind of viral illness. She had no further vomiting in the emergency room. This could be related to her marijuana use and I have discussed this with the patient. I will discharge her with Zofran for home. She is stable for discharge at this time. [] Dragon Disclaimer: Dragon Disclaimer: This electronic medical record was generated, in whole or in part, using a voice recognition dictation system. Departure Departure: Impression: Primary Impression: Vomiting Disposition: 01 HOME / SELF CARE / HOMELESS Condition: IMPROVED Referrals: PCP,NO (PCP) Patient Instructions: Nausea and Vomiting, [id number] Scripts Ondansetron (ONDANSETRON ODT) 4 Mg Tab.rapdis 1 TAB PO PRN Q6-8HRS PRN for VOMITING, #16 TAB Prov: JAMIE ENGLAND DO 09/26/21 JAMIE ENGLAND DO Sep 26, 2021 08:57
[2021-09-26] MEDS ORDERED: IOHEXOL 300 MG/ML 75 ML VIAL. IV ONE (09:00)
[2021-09-26 09:28] LABS: BASO % 1 % (0-3); EOS # 0.2 x10^3/uL (0.0-0.7); EOS % 2 % (0-3); HEMATOCRIT 41.1 % (36.0-47.0); HEMOGLOBIN 14.4 g/dL (12.0-15.5); LYMPH # 2.4 x10^3/uL (1.0-4.8); LYMPH % 28 % (24-48); MEAN CORPUSCULAR HEMOGLOBIN 31 pg (25-35); MEAN CORPUSCULAR HGB CONC 35 g/dL (31-37); MEAN CORPUSCULAR VOLUME 87 fL (79-100); MONO # 0.7 x10^3/uL (0.0-1.1); MONO % 8 % (0-9); NEUT # 5.2 x10^3uL (1.8-7.7); NEUT % 61 % (31-73); PLATELET COUNT 265 x10^3/uL (140-400); RED BLOOD COUNT 4.72 x10^6/uL (3.50-5.40); RED CELL DISTRIBUTION WIDTH 12.1 % (11.5-14.5); WHITE BLOOD COUNT 8.5 x10^3/uL (4.0-11.0)
[2021-09-26 09:32] LABS: BARBITURATES NEG (NEG); BENZODIAZEPINES NEG (NEG); CANNABINOIDS POS (NEG); COCAINE NEG (NEG); METHADONE NEG (NEG); OPIATES NEG (NEG); PHENCYCLIDINE NEG (NEG)
[2021-09-26 09:33] LABS: CALCIUM 8.5 mg/dL (8.5-10.1); CREATININE 0.8 mg/dL (0.6-1.0); GFR 88.1; POTASSIUM 3.3 mmol/L (3.5-5.1)
[2021-09-26 09:34] LABS: AMPHETAMINE/METHAMPHETAMINE NEG (NEG)
[2021-09-26 09:39] LABS: ALBUMIN 3.7 g/dL (3.4-5.0); TOTAL BILIRUBIN 0.2 mg/dL (0.2-1.0); TOTAL PROTEIN 7.3 g/dL (6.4-8.2)
[2021-09-26 09:41] LABS: BACTERIA,URINE 0 /HPF (0-FEW); CLARITY,URINE CLEAR; COLOR,URINE YELLOW; GLUCOSE,URINE NEG (NEG); NITRITE,URINE NEG (NEG); RBC,URINE OCC /HPF (0-2); SQUAMOUS EPITHELIAL CELL,UR MOD /LPF
--- NOTE | 2021-09-26 09:55 | RAD ---
AP chest. HISTORY: Short of breath AP view was taken of the chest. Lungs are clear. Heart is normal in size. There is no pleural effusio n. IMPRESSION: 1. No acute chest disease. Electronically signed by: Shamar Hernandez MD (09/26/2021 9:52 AM) [facility]
--- NOTE | 2021-09-26 09:59 | RAD ---
CT ABDOMEN+PELVIS W History: Periumbilical pain and vomiting. Comparison: CT abdomen and pelvis 09/28/2019 Technique: CT of the abdomen and pelvis with intravenous contrast. Findings: The lung bases are clear. The liver, gallbladder, pancreas, spleen, adrenal glands, and kidneys are w ithin normal limits. The stomach and small bowel are unremarkable. Normal appendix. Mild gaseous dist ention of the colon. No colonic wall thickening or pericolonic inflammatory changes. The uterus and a dnexa are unremarkable. The bladder is decompressed. No intra-abdominal free air or free fluid. No ad enopathy. Vasculature is within normal limits. Impression: 1. No acute findings in the abdomen and pelvis. ------ Exposure: One or more of the following individualized dose reduction techniques were utilized for thi s examination: 1. Automated exposure control 2. Adjustment of the mA and/or kV according to patient size 3. Use of iterative reconstruction technique. Electronically signed by: Aram Naqvi MD (09/26/2021 9:57 AM) [id number]
[2021-09-26] MEDS ORDERED: ONDA4TAB12 PO (10:12)
[2021-09-26 10:35] VITALS: BP 110/85
== END 2021-09-26 10:37 | disposition home or self-care (01) ==
LOC: ER 08:07
DX: R11.2 Nausea with vomiting, unspecified (principal); R10.33 Periumbilical pain; R05.9 Cough, unspecified
CPT/HCPCS: 36415; 71045; 74177; 80053; 80307; 81001; 81025; 85025; 87086; 96374; 99285; J2405; J7030; Q9967

== ENCOUNTER 2021-10-31 00:29 | Emergency (ER) | payer OTHER ==
[~2021-10-31] VITALS: Ht 160 cm; Wt 81.2 kg
[2021-10-31] MEDS ORDERED: CEPH500C PO (00:50)
--- NOTE | 2021-10-31 00:50 | PHYS DOC ---
Past History Past Medical History: No Pertinent History Past Surgical History: No Surgical History Smoking: Non-smoker Alcohol Use: Occasionally Drug Use: None Adult General Chief Complaint Chief Complaint: NAUSEA/VOMITING/DIARRHEA HPI HPI Patient is a 26-year-old female who presents with a chief complaint of dysuria and recent diagnosis of urinary tract infection on Bactrim. States has been taken in a couple of days but has not seen any improvement in her dysuria and thinks that the Bactrim is making her nauseous she had an episode of nonbloody nonbilious emesis. Denies any recent traumas or travels, illnesses, fevers, chest pain, shortness of breath or hematuria, diarrhea or blood in the stool. Denies any vaginal bleeding, discharge, pain. Denies any history of STIs or concern thereof. Review of Systems Review of Systems Review of systems otherwise unremarkable except noted in HPI Allergies Allergies Allergies Coded Allergies Type Severity Reaction Last Updated Verified No Known Drug Allergies 05/20/21 No Physical Exam Physical Exam Constitutional: Well developed, well nourished, no acute distress, non-toxic appearance. [] HENT: Normocephalic, atraumatic, oropharynx moist, Eyes: conjunctiva normal, no discharge. [] Cardiovascular:Heart rate regular rhythm, no murmur [] Lungs & Thorax: Bilateral breath sounds clear to auscultation [] Abdomen: soft, no tenderness, no masses, no pulsatile masses. [] Skin: Warm, dry, no erythema, no rash. [] Back: no CVA tenderness. [] Extremities: No tenderness, no cyanosis, no clubbing, ROM intact, no edema. [] Neurologic: Alert and oriented X 3, normal motor function, normal sensory function, no focal deficits noted. [] Psychologic: Affect normal, judgement normal, mood normal. [] EKG EKG [] Radiology/Procedures Radiology/Procedures [] Heart Score C/O Chest Pain: No Risk Factors: Risk Factors: DM, Current or recent (<one month) smoker, HTN, HLP, family history of CAD, obesity. Risk Scores: Risk Factors: DM, Current or recent (<one month) smoker, HTN, HLP, family history of CAD, obesity. Course & Med Decision Making Course & Med Decision Making Patient is a 26-year-old female with a urinary tract infection on Bactrim who presents with urinary tract infection symptoms and nausea Vital signs not concerning. Physical exam noted above. Stopped Bactrim. Started on Keflex. Given pain and nausea medicine Discussed all findings with patient and family. Discussed symptom management at home. Advised to follow-up on Wednesday with primary care physician Gave return precautions to ED. Patient agreeable, verbalized understanding and agreed with plan of discharge. [] Dragon Disclaimer Dragon Disclaimer This electronic medical record was generated, in whole or in part, using a voice recognition dictation system. Departure Departure: Impression: Primary Impression: UTI (urinary tract infection) Disposition: HOME / SELF CARE / HOMELESS Condition: STABLE Referrals: [facility] (PCP) [facility] Patient Instructions: Urinary Tract Infection Additional Instructions: Thank you for coming into the emergency department tonight and allowing us to take care of you. Please read the attached information carefully to go over things we discussed. Please stop taking your Bactrim. Please begin taking your Keflex and take them as prescribed until gone. Please stay well-hydrated. Please begin a Tylenol and ibuprofen regimen. Please take your nausea medicine as prescribed and as needed. Please follow-up on Wednesday with your primary care physician update on your ED visit and set up a follow-up. Please come back with new or concerning symptoms as discussed. Scripts Cephalexin (KEFLEX) 500 Mg Capsule 1 CAP PO TID for UTI for 5 Days, #15 CAP Prov: YAIR BOSCH MD 10/31/21 YAIR BOSCH MD Oct 31, 2021 00:50
[2021-10-31] MEDS ORDERED: CEPHALEXIN 250 MG CAPSULE ONE (00:56)
[2021-10-31] MEDS ORDERED: oxyCODONE/APAP 5/325 1 TAB TABLET PO ONE ×2 (01:00→01:30)
[2021-10-31] MEDS ORDERED: METOCLOPRAMIDE HCL 10 MG/2 ML VIAL. IM ONE (01:00)
[2021-10-31] MEDS ORDERED: ONDANSETRON 4MG ODT 4TABLET STARTPACK. PO ONE (01:00)
[2021-10-31] MEDS ORDERED: diphenhydrAMINE HCL 25 MG CAPSULE PO ONE (01:00)
[2021-10-31 01:19] LABS: CLARITY,URINE CLEAR; COLOR,URINE YELLOW
[2021-10-31 01:20] LABS: BACTERIA,URINE FEW /HPF (0-FEW); GLUCOSE,URINE NEG (NEG); NITRITE,URINE POS (NEG); RBC,URINE 0 /HPF (0-2); SQUAMOUS EPITHELIAL CELL,UR MANY /LPF; UROBILINOGEN,URINE 0.2 mg/dL (0.2 mg/dL)
[2021-10-31] MEDS ORDERED: CEPHALEXIN 250 MG CAPSULE PO ONE (01:30)
[2021-10-31 01:34] VITALS: BP 128/54
== END 2021-10-31 01:35 | disposition home or self-care (01) ==
LOC: ER 00:29
DX: N39.0 Urinary tract infection, site not specified (principal)
CPT/HCPCS: 81001; 81025; 87086; 96372; 99284; J2765; Q0162; Q0163

== ENCOUNTER 2021-11-07 03:47 | Emergency (ER) | payer OTHER ==
[~2021-11-07] VITALS: Ht 160 cm; Wt 81.2 kg
[~2021-11-07 03:47] MED LIST changes: +CEPH500C PO
[2021-11-07] MEDS ORDERED: ONDANSETRON PF 4 MG/2 ML VIAL. IVP ONE (04:00)
[2021-11-07] MEDS ORDERED: IV NORMAL SALINE 1,000ML 1,000 ML IV ONE (04:00)
[2021-11-07] MEDS ORDERED: ETON68IM3 SQ (04:08)
--- NOTE | 2021-11-07 04:13 | PHYS DOC ---
Past History Past Medical History: No Pertinent History Past Surgical History: No Surgical History Smoking: Non-smoker Alcohol Use: None Drug Use: None General Adult EDM: Chief Complaint: PAIN ON URINATION HPI: HPI: 26-year-old female presents with pain on urination and low back pain. Patient was diagnosed a week ago with UTI. She just finished her antibiotics. The day after she stopped, yesterday she started to have some lower abdominal pain. She comes in this morning because the pain seemed to increase through the night and is moderate to severe and cramping in nature. She denies fever or chills. She has not had vomiting. She had 1 episode of diarrhea. No history of kidney sto kelsey. She denies any falls or trauma. Review of Systems: Review of Systems: Constitutional: Denies fever or chills Eyes: Denies change in visual acuity HENT: Denies nasal congestion or sore throat Respiratory: Denies cough or shortness of breath Cardiovascular: Denies chest pain or edema GI: Lower abdominal pain, nausea. Denies vomiting, bloody stools or diarrhea. : Denies dysuria Musculoskeletal: No back pain Integument: Denies rash Neurologic: Denies headache, focal weakness or sensory changes Endocrine: Denies polyuria or polydipsia Lymphatic: Denies swollen glands Psychiatric: Denies depression or anxiety Current Medications: Current Meds: Current Medications Medications (Trade) Dose Ordered Sig/Devang Start Time Stop Time Status Last Admin Dose Admin Ondansetron HCl (Zofran) 4 mg 1X ONCE 11/07/21 04:00 11/07/21 04:01 DC Sodium Chloride 1,000 ml @ 1,000 mls/hr 1X ONCE 11/07/21 04:00 11/07/21 04:59 Allergies: Allergies: Allergies Coded Allergies Type Severity Reaction Last Updated Verified No Known Drug Allergies 05/20/21 No Physical Exam: PE: Constitutional: Well developed, well nourished, no acute distress, non-toxic appearance. [] HENT: Normocephalic, atraumatic, bilateral external ears normal, oropharynx moist, no oral exudates, nose normal. [] Eyes: PERRLA, EOMI, conjunctiva normal, no discharge. [] Neck: Normal range of motion, no tenderness, supple, no stridor. [] Cardiovascular: Heart rate regular rhythm, no murmur [] Lungs & Thorax: Bilateral breath sounds clear to auscultation [] Abdomen: Bowel sounds normal, soft, mild suprapubic tenderness, no masses, no pulsatile masses. [] Skin: Warm, dry, no erythema, no rash. [] Back: Lower back edema, mild tenderness [] Extremities: No tenderness, no cyanosis, no clubbing, ROM intact, no edema. [] Neurologic: Alert and oriented X 3, normal motor function, normal sensory function, no focal deficits noted. [] Psychologic: Affect normal, judgement normal, mood normal. [] EKG: EKG: [] Radiology/Procedures: Radiology/Procedures: [] Impressions: EXAM: CT Abdomen and Pelvis with IV contrast CLINICAL HISTORY: Reason: Abdominal pain.HX RECENT UTI COMPARISON: 09/26/2021 TECHNIQUE: Helical CT of the abdomen and pelvis was performed following the administration of intravenous contrast. Axial, coronal and sagittal reformatted images were generated. PQRS compliance statement - One or more of the following individualized dose reduction techniques were utilized for this study: 1. Automated exposure control 2. Adjustment of the mA and/or kV according to patient size 3. Use of iterative reconstruction technique FINDINGS: Lower Chest: Lung bases are clear. Small hiatal hernia. Abdomen and Pelvis: Subcentimeter hypodense posterior right hepatic lobe lesion is too small to accurately characterize. Gallbladder, spleen, adrenal glands and pancreas are unremarkable. Symmetric nephrograms. No focal renal lesion. No hydronephrosis. No hydroureter. Bladder wall thickening may represent cystitis or be related to underdistention. Appendix is normal. Moderate to large volume colonic stool content is seen. No small or large bowel dilatation. No bowel obstruction. No abdominal or pelvic lymphadenopathy. No abdominal or pelvic ascites. Bones: No aggressive osseous lesion is seen. IMPRESSION: 1. Mild bladder wall thickening likely cystitis or related to underdistention. This can be correlated with urinalysis. 2. Moderate to large volume colonic stool content. No bowel obstruction. Electronically signed by: Sebastian Jenkins MD (11/07/2021 5:05 AM) [facility] DICTATED AND SIGNED BY: SEBASTIAN JENKINS MD DATE: 11/07/21 0459 CC: JAMIE ENGLAND DO; PCP,NO ~ Heart Score: C/O Chest Pain: N/A Risk Factors: Risk Factors: DM, Current or recent (<one month) smoker, HTN, HLP, family hi story of CAD, obesity. Risk Scores: Score 0 - 3: 2.5% MACE over next 6 weeks - Discharge Home Score 4 - 6: 20.3% MACE over next 6 weeks - Admit for Clinical Observation Score 7 - 10: 72.7% MACE over next 6 weeks - Early Invasive Strategies Course & Med Decision Making: Course & Med Decision Making Pertinent Labs and Imaging studies reviewed. (See chart for details) The patient's labs are unremarkable. Her urinalysis is negative for infection. CT of the abdomen and pelvis does show constipation. This could be the patient's cause of discomfort. I recommended a bowel cleanout with magnesium citrate. We will give her a bottle in the emergency room. She is stable for discharge at this time. [] Dragon Disclaimer: Dragon Disclaimer: This electronic medical record was generated, in whole or in part, using a voice recognition dictation system. Departure Departure: Impression: Primary Impression: Constipation Disposition: HOME / SELF CARE / HOMELESS Condition: STABLE Referrals: [facility] (PCP) Patient Instructions: Constipation, Adult, [id number] JAMIE ENGLAND DO Nov 07, 2021 04:13
[2021-11-07] MEDS ORDERED: IOHEXOL 300 MG/ML 75 ML VIAL. IV ONE (04:45)
[2021-11-07] MEDS ORDERED: CONTRAST GIVEN. MC PRN (04:45)
[2021-11-07 04:52] LABS: BASO # 0.1 x10^3/uL (0.0-0.2); BASO % 1 % (0-3); EOS # 0.1 x10^3/uL (0.0-0.7); EOS % 1 % (0-3); HEMATOCRIT 38.6 % (36.0-47.0); LYMPH % 38 % (24-48); MEAN CORPUSCULAR HEMOGLOBIN 30 pg (25-35); MEAN CORPUSCULAR HGB CONC 34 g/dL (31-37); MEAN CORPUSCULAR VOLUME 90 fL (79-100); MONO # 0.6 x10^3/uL (0.0-1.1); MONO % 6 % (0-9); NEUT # 5.8 x10^3uL (1.8-7.7); NEUT % 54 % (31-73); PLATELET COUNT 274 x10^3/uL (140-400); RED CELL DISTRIBUTION WIDTH 13.5 % (11.5-14.5); WHITE BLOOD COUNT 10.7 x10^3/uL (4.0-11.0)
[2021-11-07 04:59] LABS: BACTERIA,URINE FEW /HPF (0-FEW); CLARITY,URINE CLEAR; COLOR,URINE YELLOW; GLUCOSE,URINE NEG (NEG); NITRITE,URINE NEG (NEG); RBC,URINE 0 /HPF (0-2); SQUAMOUS EPITHELIAL CELL,UR MOD /LPF; UROBILINOGEN,URINE 0.2 mg/dL (0.2 mg/dL)
[2021-11-07 05:03] LABS: CALCIUM 8.8 mg/dL (8.5-10.1); CREATININE 0.8 mg/dL (0.6-1.0); GFR 88.1; POTASSIUM 4.2 mmol/L (3.5-5.1)
--- NOTE | 2021-11-07 05:07 | RAD ---
EXAM: CT Abdomen and Pelvis with IV contrast CLINICAL HISTORY: Reason: Abdominal pain.HX RECENT UTI COMPARISON: 09/26/2021 TECHNIQUE: Helical CT of the abdomen and pelvis was performed following the administration of intrave nous contrast. Axial, coronal and sagittal reformatted images were generated. PQRS compliance statement - One or more of the following individualized dose reduction techniques wer e utilized for this study: 1. Automated exposure control 2. Adjustment of the mA and/or kV according to patient size 3. Use of iterative reconstruction technique FINDINGS: Lower Chest: Lung bases are clear. Small hiatal hernia. Abdomen and Pelvis: Subcentimeter hypodense posterior right hepatic lobe lesion is too small to accurately characterize. Gallbladder, spleen, adrenal glands and pancreas are unremarkable. Symmetric nephrograms. No focal renal lesion. No hydronephrosis. No hydroureter. Bladder wall thicken ing may represent cystitis or be related to underdistention. Appendix is normal. Moderate to large volume colonic stool content is seen. No small or large bowel d ilatation. No bowel obstruction. No abdominal or pelvic lymphadenopathy. No abdominal or pelvic ascites. Bones: No aggressive osseous lesion is seen. IMPRESSION: 1. Mild bladder wall thickening likely cystitis or related to underdistention. This can be correlate d with urinalysis. 2. Moderate to large volume colonic stool content. No bowel obstruction. Electronically signed by: Sebastian Jenkins MD (11/07/2021 5:05 AM) [facility]
[2021-11-07 05:10] LABS: ALBUMIN/GLOBULIN RATIO 1.1 (1.0-1.7); TOTAL BILIRUBIN 0.2 mg/dL (0.2-1.0); TOTAL PROTEIN 7.5 g/dL (6.4-8.2)
[2021-11-07] MEDS ORDERED: MAGNESIUM CITRATE 296 ML SOLUTION. PO ONE (05:15)
[2021-11-07 05:25] VITALS: BP 105/63
== END 2021-11-07 05:30 | disposition home or self-care (01) ==
LOC: ER 03:47
DX: K59.00 Constipation, unspecified (principal); R30.9 Painful micturition, unspecified
CPT/HCPCS: 36415; 74177; 80053; 81001; 85025; 87086; 96374; 99285; J2405; J7030; Q9967